=== PATIENT | male | born 1985 | race Caucasian/White ===

== ENCOUNTER 2018-01-27 16:52 | Emergency (ER) | payer OTHER ==
[2018-01-27 17:42] LABS: Absolute Lymphocytes (CBC) 3.4 K/uL (0.7-4.9); Absolute Monocytes 0.6 K/uL (0.1-1.3); Absolute Neutrophil 3.2 K/uL (1.8-8.0); Basophils % 0.9 % (0-1.3); Eosinophils % 1.9 % (0-4.4); Hematocrit 42.4 % (39.6-49.0); Lymphocytes % 46.5 % (15.3-44.8); MCH 29.6 pg (27.0-35.0); MCV 84.4 fL (80-100); MPV 8.8 fL (7.6-11.3); Monocytes % 7.7 % (3.3-12.3); RBC Red Blood Cell Count 5.02 M/uL (4.33-5.43)
[2018-01-27 18:07] LABS: Glucose Level 332 mg/dL (65-120)
[2018-01-27 18:09] LABS: Bicarbonate 21 mEq/L (21-31)
[2018-01-27 18:10] LABS: Potassium 4.5 mEq/L (3.6-5.0); Sodium Level 139 mEq/L (135-145)
[2018-01-27 18:13] LABS: Albumin 4.2 g/dL (3.2-5.5); Alkaline Phosphatase 89 IU/L (42-121); Bilirubin Direct 0.3 mg/dL (0-0.2); Bilirubin Total 1.2 mg/dL (0.3-1.2); Magnesium 1.6 mg/dL (1.8-2.5); Protein, Total 7.3 g/dL (6.0-8.3)
[2018-01-27 18:17] LABS: ALT/SGPT 40 IU/L (10-60); AST/SGOT 58 IU/L (10-42); Creatine Phosphokinase 320 IU/L (22-269)
[2018-01-27 18:18] LABS: CKMB Creatine Kinase MB 1.8 ng/ml (0.3-4.0)
[2018-01-27 18:33] LABS: BUN Blood Urea Nitrogen 10 mg/dL (6-20); Glomerular Filtration Rate > 90 mL/min (=/>90)
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
--- NOTE | 2018-01-27 19:27 | RAD REPORT ---
EXAM DESCRIPTION: CT - Neck Angio - 01/27/2018 7:07 pm CLINICAL HISTORY: Neck pain. COMPARISON: 01/27/2018 FINDINGS: CT angiography of the neck vessels was performed with volume rendering. A left aortic arch is noted with normal great vessel origin pattern. No evidence of carotid or verteb ral artery dissection or stenosis. Codominant vertebral arteries are present. No flow abnormality is detected. IMPRESSION: No significant flow abnormality of the neck vessels.
[2018-01-27] MEDS ORDERED: INSULIN -REGULAR HUMAN 50 UNIT/0.5 ML ML ONE (19:45)
[2018-01-27] MEDS ORDERED: NA CHLORIDE 0.9% 1,000 ML ONE (19:45)
[2018-01-27] MEDS ORDERED: Magnesium Sulfate 2gm IVPB 2 G/50 ML BAG IV ONE (19:45)
--- NOTE | 2018-01-27 20:04 | EDPHYS ---
Physician Documentation [facility] Name: Marc Giron Age: 32 yrs Sex: Male : 1985 Arrival Date: 01/27/2018 Time: 16:56 Bed 26 Private MD: ED Physician SarikaCheleMack HPI: 01/27 17:22 This 32 yrs old Male presents to ER via Ambulatory with complaints of Neck cp Problem, Hand Pain. 17:22 The patient or guardian complains of pain, that is chronic, weakness. Associated signs cp and symptoms: Pertinent positives: Paresthesias weakness, of the right hand and left hand, Pertinent negatives: fever. 17:22 Onset: The symptoms/episode began/occurred last year. cp 17:22 Context: The neck injury/problem resulted from from unknown cause. Patient reports he cp has been seen at [facility] recently and treated for carpal tunnel with steroids and muscle relaxers. Patient was adjusted by chiropractor last week and symptoms are worse since adjustment. Historical: - Allergies: 16:59 No Known Allergies; la1 - Home Meds: 17:53 Dexilant 60 mg Oral CpDB 1 cap once daily [Active]; gemfibrozil 600 mg Oral tab 1 tab 2 tl3 times per day [Active]; lisinopril 40 mg oral tab 1 tab once daily [Active]; metformin 1,000 mg Oral tab 1 tab 2 times per day [Active]; metoprolol tartrate 50 mg Oral tab daily [Active]; venlafaxine 75 mg Oral cp24 [Active]; 17:54 Novolog Sub-Q [Active]; Lantus Sub-Q [Active]; tl3 - PMHx: 16:59 Depression; Diabetes - NIDDM; Hyperlipidemia; Hypertension; insomnia; la1 - PSHx: 17:53 R radial head; Cholecystectomy; inguenal hernia repair; tl3 - Immunization history:: Adult Immunizations up to date. - Social history:: Smoking status: Patient/guardian denies using tobacco. ROS: 17:30 Constitutional: Negative for body aches, chills, fever, poor PO intake, weight loss. cp 17:30 Eyes: Negative for injury, pain, redness, and discharge. cp 17:30 ENT: Negative for drainage from ear(s), ear pain, sore throat, difficulty swallowing, difficulty handling secretions. 17:30 Neck: Positive for pain with movement, tenderness, Negative for injury or acute deformity. 17:30 Cardiovascular: Negative for chest pain, edema, palpitations. 17:30 Respiratory: Negative for cough, shortness of breath, wheezing. 17:30 Abdomen/GI: Negative for abdominal pain, nausea, vomiting, and diarrhea. 17:30 Back: Negative for injury or acute deformity, decreased range of motion. 17:30 MS/extremity: Positive for paresthesias, of the right hand and left hand. 17:30 Skin: Negative for cellulitis, rash. 17:30 Neuro: Positive for weakness, of the right hand and left hand, Negative for altered mental status, headache. 17:30 All other systems are negative. Exam: 17:40 Constitutional: The patient appears in no acute distress, alert, awake, cp non-diaphoretic, non-toxic, well developed, well nourished. 17:40 Head/Face: Normocephalic, atraumatic. cp 17:40 Eyes: Pupils equal round and reactive to light, extra-ocular motions intact. Lids and cp lashes normal. Conjunctiva and sclera are non-icteric and not injected. Cornea within normal limits. Periorbital areas with no swelling, redness, or edema. ENT: Nares patent. No nasal discharge, no septal abnormalities noted. Tympanic membranes are normal and external auditory canals are clear. Oropharynx with no redness, swelling, or masses, exudates, or evidence of obstruction, uvula midline. Mucous membranes moist. 17:40 Neck: External neck: swelling, is not appreciated, tenderness, that is mild, of the left mid cervical area, right mid cervical area, left trapezius, lower cervical area and right trapezius, ROM/movement: pain, that is mild, limited range of motion, is not appreciated, nuchal rigidity, is not appreciated. 17:40 Chest/axilla: Inspection: normal, Palpation: is normal, no crepitus, no tenderness. 17:40 Cardiovascular: Rate: normal, Rhythm: regular, Pulses: Pulses are 2+ in right radial artery and left radial artery. Heart sounds: murmur, not appreciated, rub, not appreciated, gallop, not appreciated. 17:40 Respiratory: the patient does not display signs of respiratory distress, Respirations: normal, no use of accessory muscles, no retractions, no splinting, no tachypnea, labored breathing, is not present, Breath sounds: are clear throughout, no decreased breath sounds, no stridor, no wheezing. 17:40 Abdomen/GI: Inspection: abdomen appears normal, Bowel sounds: active, all quadrants, Palpation: abdomen is soft and non-tender, in all quadrants, rebound tenderness, is not appreciated, voluntary guarding, is not appreciated, involuntary guarding, is not appreciated. 17:40 Back: ROM is normal. 17:40 Musculoskeletal/extremity: Exam is negative for decreased range of motion, deformity, injury. 17:40 Skin: cellulitis, is not appreciated, no rash present. 17:40 Neuro: Orientation: to person, place \T\ time. Mentation: is normal, Cerebellar function: is grossly normal, Motor: moves all fours, equal and symmetric bilateral upper extremities, Sensation: tingling, that is mild, of the right hand and left hand, Deep tendon reflexes are 2+ (normal) in the right tricep, right bicep, right brachioradialis, left bicep, left tricep and left brachioradialis. 17:53 ECG was reviewed by the Attending Physician. cp Vital Signs: 16:59 BP 125 / 78; Pulse 93; Resp 16; Temp 97.7; Pulse Ox 100% on R/A; Weight 108.86 kg; la1 Height 5 ft. 10 in. (177.80 cm); 17:55 BP 132 / 78; Pulse 84; Resp 18; Pulse Ox 100% ; tl3 18:52 BP 109 / 68; Pulse 82; Resp 18; Pulse Ox 100% on R/A; tl3 19:39 BP 99 / 61; Pulse 82; Resp 16; Pulse Ox 96% on R/A; tl3 20:06 BP 119 / 77; Pulse 85; Resp 18; Pulse Ox 98% ; tl3 16:59 Body Mass Index 34.44 (108.86 kg, 177.80 cm) la1 MDM: 17:02 Patient medically screened. cp 18:00 Differential diagnosis: C-Spine Fracture Cervical Disc Herniation Cervical Raiculopathy cp Cervical Spondylosis cervical strain, Spinal Cord Compression Spondylosis subluxation, diabetic neuropathy, carpal tunnel. 20:01 Data reviewed: vital signs, nurses notes, lab test result(s), EKG, radiologic studies, cp CT scan. Counseling: I had a detailed discussion with the patient and/or guardian regarding: the historical points, exam findings, and any diagnostic results supporting the discharge/admit diagnosis, lab results, radiology results, the need for outpatient follow up, a neurologist, to return to the emergency department if symptoms worsen or persist or if there are any questions or concerns that arise at home. 20:01 Response to treatment: Improved. Patient observed sleeping in exam room. Will discharge cp to home for continued monitoring. 01/27 17:17 Order name: Ckmb; Complete Time: 18:42 cp 01/27 17:17 Order name: Basic Metabolic Panel; Complete Time: 18:42 cp 01/27 18:42 Interpretation: Normal except: GLUC 332. cp 01/27 17:17 Order name: CBC with Diff; Complete Time: 18:42 cp 01/27 19:37 Interpretation: Normal except: LYM% 46.5. cp 01/27 17:17 Order name: CPK; Complete Time: 18:42 cp 01/27 17:17 Order name: LFT's; Complete Time: 18:42 cp 01/27 19:38 Interpretation: Normal except: BILID 0.3; SGOT 58. cp 01/27 17:17 Order name: Magnesium; Complete Time: 18:42 cp 01/27 20:00 Interpretation: Abnormal: MG 1.6. cp 01/27 17:17 Order name: IV; Complete Time: 17:33 cp 01/27 17:17 Order name: EKG; Complete Time: 17:17 cp 01/27 17:17 Order name: Troponin (emerg Dept Use Only); Complete Time: 18:42 cp 01/27 17:17 Order name: CT Head C Spine; Complete Time: 19:35 cp 01/27 17:17 Order name: CT Neck Angio; Complete Time: 19:35 cp 01/27 17:17 Order name: Cardiac monitoring; Complete Time: 17:28 cp 01/27 17:17 Order name: EKG - Nurse/Tech; Complete Time: 18:11 cp 01/27 17:17 Order name: Labs collected and sent; Complete Time: 17:28 cp 01/27 17:17 Order name: O2 Per Protocol; Complete Time: 17:28 cp 01/27 17:17 Order name: O2 Sat Monitoring; Complete Time: 17:28 cp 01/27 19:53 Order name: Carmen Blood Glucose; Complete Time: 20:09 cp EC:53 Rate is 81 beats/min. Rhythm is regular. PA interval is normal. QRS interval is normal. cp QT interval is normal. No ST changes noted. Interpreted by me. Reviewed by me. Administered Medications: 19:34 Drug: Magnesium Sulfate 2 grams Route: IVPB; Infused Over: 2 hrs; Site: right tl3 antecubital; Delivery: Primary tubing; 20:49 Follow up: IV Status: Completed infusion; IV Intake: 100ml tl3 19:35 Drug: NS 0.9% 1000 ml Route: IV; Rate: 1 bolus; Site: right antecubital; Delivery: tl3 Primary tubing; 20:49 Follow up: IV Status: Completed infusion; IV Intake: 1000ml tl3 19:36 Drug: NovoLIN R 10 units {Co-Signature: anabelle (Becca Kirk RN).} Route: Sub-Q; Site: tl3 abdomen; 20:50 Follow up: Response: No adverse reaction; Blood sugar is lowered tl3 Point of Care Testing: Blood Glucose: 20:14 Blood Glucose: 264 mg/dL; tl3 Ranges: Critical Glucose Levels:Adult <50 mg/dl or >400 mg/dl <40 mg/dl or >180 mg/dl Disposition: 01/27/18 20:03 Discharged to Home. Impression: Paresthesia of skin - Bilateral Hands, Weakness - Bilateral Hands, Neck Pain. - Condition is Stable. - Discharge Instructions: Musculoskeletal Pain, Paresthesia, Weakness. - Prescriptions for Skelaxin 800 mg Oral Tablet - take 1 tablet by ORAL route every 8 hours As needed no driving while taking medication; 30 tablet. Tramadol 50 mg Oral Tablet - take 1 tablet by ORAL route every 8 hours as needed. no driving while taking medication; 15 tablet. - Medication Reconciliation Form, Thank You Letter, Antibiotic Education, Prescription Opioid Use form. - Follow up: Jagdeep Byrne MD; When: 2 - 3 days; Reason: Recheck today's complaints. - Problem is an ongoing problem. - Symptoms are unchanged. Addendum: 01/29/2018 07:27 Co-signature as Attending Physician, Mack Baum MD. g s Signatures: [facility] Conor Mendez RN RN la1 Rohan Caldwell PA PA cp Starr, Gregory, MD MD gs Keira Silva RN RN tl3 Becca Kirk RN aa1 Corrections: (The following items were deleted from the chart) 01/27 17:55 17:53 Home Meds: Lantus 100 unit/mL Sub-Q soln twice a day; tl3 tl3 17:55 17:53 Home Meds: Novolog 100 unit/mL Sub-Q soln before meals; tl3 tl3
--- NOTE | 2018-01-27 20:04 | ER ---
Nurse's Notes [facility] Name: Marc Giron Age: 32 yrs Sex: Male : 1985 Arrival Date: 01/27/2018 Time: 16:56 Bed 26 Private MD: Diagnosis: Paresthesia of skin-Bilateral Hands;Weakness-Bilateral Hands;Neck Pain Presentation: 01/27 16:59 Presenting complaint: Patient states: I have been having pain in my neck as well as la1 numbness and pain in daysi hands. Transition of care: patient was not received from another setting of care. Acute neurological deficit: none identified. Onset of symptoms was January 27, 2018. Care prior to arrival: None. 16:59 Method Of Arrival: Ambulatory la1 16:59 Acuity: MARGARITA 3 la1 Historical: - Allergies: 16:59 No Known Allergies; la1 - Home Meds: 17:53 Dexilant 60 mg Oral CpDB 1 cap once daily [Active]; gemfibrozil 600 mg Oral tab 1 tab 2 tl3 times per day [Active]; lisinopril 40 mg oral tab 1 tab once daily [Active]; metformin 1,000 mg Oral tab 1 tab 2 times per day [Active]; metoprolol tartrate 50 mg Oral tab daily [Active]; venlafaxine 75 mg Oral cp24 [Active]; 17:54 Novolog Sub-Q [Active]; Lantus Sub-Q [Active]; tl3 - PMHx: 16:59 Depression; Diabetes - NIDDM; Hyperlipidemia; Hypertension; insomnia; la1 - PSHx: 17:53 R radial head; Cholecystectomy; inguenal hernia repair; tl3 - Immunization history:: Adult Immunizations up to date. - Social history:: Smoking status: Patient/guardian denies using tobacco. Screenin:09 Abuse screen: Denies threats or abuse. Nutritional screening: No deficits noted. tl3 Tuberculosis screening: No symptoms or risk factors identified. Fall Risk None identified. Assessment: 17:09 General: Appears uncomfortable, well groomed, well developed, well nourished, Behavior tl3 is calm, cooperative, appropriate for age. Pain: Complains of pain in neck and left shoulder, bilateral hands Pain currently is 7 out of 10 on a pain scale. Neuro: Level of Consciousness is awake, alert, obeys commands, Oriented to person, place, time, situation, Appropriate for age. Cardiovascular: Heart tones S1 S2 present Capillary refill < 3 seconds in bilateral fingers. Respiratory: Airway is patent Trachea midline Respiratory effort is even, unlabored. GI: No signs and/or symptoms were reported involving the gastrointestinal system. : No signs and/or symptoms were reported regarding the genitourinary system. EENT: No signs and/or symptoms were reported regarding the EENT system. Derm: No signs and/or symptoms reported regarding the dermatologic system. Musculoskeletal: No signs and/or symptoms reported regarding the musculoskeletal system. 17:11 Reassessment: pt states that his fingers started feeling numb off and on since tl3 September. Started after he roofed his house, now 4 fingers are numb and hands hurt, neck and shoulder pain as well off/on since September, but has gotten worse lately, saw chiropractor on Monday, neck pain was initially better after adjustment but now is worse.PT has tried Flexeril, a 5 day course of steroids and tramadol without relief. 17:55 Reassessment: No changes from previously documented assessment. Patient and/or family tl3 updated on plan of care and expected duration. Pain level reassessed. Patient is alert, oriented x 3, equal unlabored respirations, skin warm/dry/pink. EKG complete. 18:52 Reassessment: No changes from previously documented assessment. Patient and/or family tl3 updated on plan of care and expected duration. Pain level reassessed. Patient is alert, oriented x 3, equal unlabored respirations, skin warm/dry/pink. pt reports shoot pain from right wrist up into upper arm. 19:39 Reassessment: No changes from previously documented assessment. Patient and/or family tl3 updated on plan of care and expected duration. Pain level reassessed. Patient is alert, oriented x 3, equal unlabored respirations, skin warm/dry/pink. 20:06 Reassessment: Patient appears in no apparent distress at this time. No changes from tl3 previously documented assessment. Patient and/or family updated on plan of care and expected duration. Pain level reassessed. Patient is alert, oriented x 3, equal unlabored respirations, skin warm/dry/pink. pt is up for discharge, awaiting drug infusion to complete. Vital Signs: 16:59 BP 125 / 78; Pulse 93; Resp 16; Temp 97.7; Pulse Ox 100% on R/A; Weight 108.86 kg; la1 Height 5 ft. 10 in. (177.80 cm); 17:55 BP 132 / 78; Pulse 84; Resp 18; Pulse Ox 100% ; tl3 18:52 BP 109 / 68; Pulse 82; Resp 18; Pulse Ox 100% on R/A; tl3 19:39 BP 99 / 61; Pulse 82; Resp 16; Pulse Ox 96% on R/A; tl3 20:06 BP 119 / 77; Pulse 85; Resp 18; Pulse Ox 98% ; tl3 16:59 Body Mass Index 34.44 (108.86 kg, 177.80 cm) la1 ED Course: 16:56 Patient arrived in ED. mr 16:59 Triage completed. la1 17:00 Arm band placed on right wrist. la1 17:01 Rohan Caldwell PA is PHCP. cp 17:01 Mack Baum MD is Attending Physician. cp 17:02 Keira Silva, BRIDGET is Primary Nurse. tl3 17:09 Patient has correct armband on for positive identification. Bed in low position. Call tl3 light in reach. Side rails up X 1. Adult w/ patient. 17:09 No provider procedures requiring assistance completed. tl3 17:11 Inserted saline lock: 22 gauge in right antecubital area, using aseptic technique. tl3 17:23 Radiology exam delayed due to lab results not completed at this time. (BUN/Creatinine). bq 18:[address] via stretcher. tl3 19:06 CT completed. Patient tolerated procedure well. Patient moved back from CT. bq 19:07 CT Neck Angio In Process Unspecified. EDMS 19:08 CT Head C Spine In Process Unspecified. EDMS 20:02 Jagdeep Byrne MD is Referral Physician. cp 20:48 IV discontinued, intact, bleeding controlled, No redness/swelling at site. Pressure tl3 dressing applied. Administered Medications: 19:34 Drug: Magnesium Sulfate 2 grams Route: IVPB; Infused Over: 2 hrs; Site: right tl3 antecubital; Delivery: Primary tubing; 20:49 Follow up: IV Status: Completed infusion; IV Intake: 100ml tl3 19:35 Drug: NS 0.9% 1000 ml Route: IV; Rate: 1 bolus; Site: right antecubital; Delivery: tl3 Primary tubing; 20:49 Follow up: IV Status: Completed infusion; IV Intake: 1000ml tl3 19:36 Drug: NovoLIN R 10 units {Co-Signature: aa1 (Becca Kirk RN).} Route: Sub-Q; Site: tl3 abdomen; 20:50 Follow up: Response: No adverse reaction; Blood sugar is lowered tl3 Point of Care Testing: Blood Glucose: 20:14 Blood Glucose: 264 mg/dL; tl3 Ranges: Intake: 20:49 IV: 100ml; Total: 100ml. tl3 20:49 IV: 1000ml; Total: 1100ml. tl3 Outcome: 20:03 Discharge ordered by MD. cp 20:48 Discharged to home ambulatory. tl3 20:48 Condition: stable 20:48 Discharge instructions given to patient, Instructed on discharge instructions, follow up and referral plans. medication usage, Demonstrated understanding of instructions, follow-up care, medications, Prescriptions given X 2. 20:50 Patient left the ED. tl3 Signatures: Dispatcher [employer] EDAR Basilia Shannon mr SkyerichLilliam Lee, RN RN la1 Rohan Caldwell PA PA cp Lowrey, Tammy, RN RN tl3 Becca Kirk RN aa1 Corrections: (The following items were deleted from the chart) 17:55 17:53 Home Meds: Lantus 100 unit/mL Sub-Q soln twice a day; tl3 tl3 17:55 17:53 Home Meds: Novolog 100 unit/mL Sub-Q soln before meals; tl3 tl3 19:35 19:34 Magnesium Sulfate 2 grams IVPB in right forearm over 2 hrs via Primary tubing tl3 tl3
[2018-01-27 20:54] VITALS: TEMP 97.7
[2018-01-27 20:59] VITALS: BP 119/77; O2SAT 98
--- NOTE | 2018-01-28 12:45 | EKG ---
Test Date: 2018-01-27 Test Time: 17:47:53 Can Vacuum Tester: EMT MEASUREMENT RESULTS: Intervals: Rate: 81 NE: 132 QRSD: 84 QT: 380 QTc: 441 [place]: P: 44 NE: 132 QRS: 80 T: 34 INTERPRETIVE STATEMENTS: Normal sinus rhythm Normal ECG Compared to ECG 06/09/2017 18:01:35 No significant changes Electronically Signed On 01-28-18 12:44:18 CDT by Alvaro Crane
== END 2018-01-27 20:50 | disposition home or self-care (01) ==
LOC: ER 16:52
DX: M54.2 Cervicalgia (principal); M62.81 Muscle weakness (generalized); I10 Essential (primary) hypertension; E11.9 Type 2 diabetes mellitus without complications; E78.5 Hyperlipidemia, unspecified; F32.9 Major depressive disorder, single episode, unspecified; Z79.4 Long term (current) use of insulin
CPT/HCPCS: 36415; 70450; 70498; 72125; 80048; 80076; 82550; 82553; 82962; 83735; 84484; 85025; 93005; 96361; 96365; 96372; 99284; J3475; J7030; Q9967

== ENCOUNTER 2018-02-14 12:14 | Emergency (ER) | payer OTHER ==
[2018-02-14] MEDS ORDERED: FENTANYL CITR 100 MCG/2 ML ONE (12:31)
[2018-02-14] MEDS ORDERED: ONDANSETRON 4 MG/2 ML VIAL ONE (12:31)
[2018-02-14] MEDS ORDERED: NA CHLORIDE 0.9% 1,000 ML ONE (12:31)
[2018-02-14 13:00] LABS: Absolute Lymphocytes (CBC) 2.2 K/uL (0.7-4.9); Absolute Monocytes 0.5 K/uL (0.1-1.3); Absolute Neutrophil 3.6 K/uL (1.8-8.0); Basophils % 0.4 % (0-1.3); Eosinophils % 1.2 % (0-4.4); Hematocrit 43.3 % (39.6-49.0); Lymphocytes % 34.7 % (15.3-44.8); MCH 28.2 pg (27.0-35.0); MCV 84.2 fL (80-100); MPV 8.6 fL (7.6-11.3); Monocytes % 8.3 % (3.3-12.3); RBC Red Blood Cell Count 5.14 M/uL (4.33-5.43)
[2018-02-14 13:05] LABS: Bicarbonate 26 mEq/L (21-31); Glomerular Filtration Rate > 60 mL/min (>60); Glucose Level 381 mg/dL (65-120); Sodium Level 131 mEq/L (135-145)
[2018-02-14 13:06] LABS: BUN Blood Urea Nitrogen 9 mg/dL (6-20); Glomerular Filtration Rate > 90 mL/min (=/>90)
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
[2018-02-14] MEDS ORDERED: HYDROCODONE/APAP 10/325 TAB ONE (13:35)
[2018-02-14] MEDS ORDERED: LORazepam 2 MG/ML VIAL ONE (13:40)
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
[2018-02-14 15:53] VITALS: BP 138/96; TEMP 97.9; O2SAT 100
== END 2018-02-14 15:44 | disposition home or self-care (01) ==
LOC: ER 12:14
DX: M62.830 Muscle spasm of back (principal); V49.49XA Driver injured in collision with other motor vehicles in traffic accident, initial encounter; I10 Essential (primary) hypertension; E11.9 Type 2 diabetes mellitus without complications; E78.5 Hyperlipidemia, unspecified; F32.9 Major depressive disorder, single episode, unspecified; Z79.4 Long term (current) use of insulin
CPT/HCPCS: 36415; 70450; 71260; 72125; 74177; 80048; 85025; 86850; 86900; 86901; 96374; 96375; 99285; J2405; J3010; J7030; Q9967

== ENCOUNTER 2018-04-11 16:13 | Observation (INO) | payer OTHER ==
[2018-04-11] MEDS ORDERED: NA CHLORIDE 0.9% 1,000 ML ONE ×2 (16:46→19:46)
--- NOTE | 2018-04-11 17:08 | RAD REPORT ---
EXAM DESCRIPTION: RAD - Chest Single View - 04/11/2018 4:55 pm CLINICAL HISTORY: Chest pain. COMPARISON: 06/09/2017 FINDINGS: Portable technique limits examination quality. The lungs are grossly clear. The heart is normal in size. No displaced fractures. IMPRESSION: No acute intrathoracic process suspected.
[2018-04-11 17:12] LABS: Absolute Lymphocytes (CBC) 2.4 K/uL (0.7-4.9); Absolute Monocytes 0.8 K/uL (0.1-1.3); Basophils % 0.5 % (0-1.3); Eosinophils % 1.1 % (0-4.4); Hematocrit 44.8 % (39.6-49.0); Lymphocytes % 32.6 % (15.3-44.8); MCH 27.7 pg (27.0-35.0); MCV 81.9 fL (80-100); MPV 8.4 fL (7.6-11.3); Monocytes % 10.9 % (3.3-12.3); RBC Red Blood Cell Count 5.47 M/uL (4.33-5.43)
[2018-04-11 17:18] LABS: Protime INR 0.96
[2018-04-11 17:30] LABS: Potassium 3.6 mEq/L (3.6-5.0)
[2018-04-11 17:36] LABS: Albumin 3.7 g/dL (3.2-5.5); Bilirubin Direct 0.1 mg/dL (0-0.2); Bilirubin Total 0.5 mg/dL (0.3-1.2)
[2018-04-11 17:37] LABS: CKMB Creatine Kinase MB 0.5 ng/ml (0.3-4.0)
[2018-04-11 17:39] LABS: Magnesium 1.5 mg/dL (1.8-2.5)
[2018-04-11 18:12] LABS: Barbiturates NEGATIVE (NEGATIVE); Benzodiazepines NEGATIVE (NEGATIVE); Cocaine NEGATIVE (NEGATIVE); METHAMPHETAM NEGATIVE (NEGATIVE); Opiates NEGATIVE (NEGATIVE); Phencyclidine NEGATIVE (NEGATIVE); THC Cannibis NEGATIVE (NEGATIVE)
--- NOTE | 2018-04-11 19:35 | ER ---
Nurse's Notes [facility] Name: Marc Giron Age: 32 yrs Sex: Male : 1985 Arrival Date: 04/11/2018 Time: 16:15 Bed 6 Private MD: Diagnosis: Chest pain, unspecified;Essential (primary) hypertension;Type 2 diabetes mellitus;Obesity, unspecified Presentation: 04/11 16:16 Presenting complaint: EMS states: called from [facility] for pt complaining of chest hj tightness, crampy feeling on the chest about 7/10 that moves to the L shoulder, L chest area, fast heart rate 120's to 130's as stated from i watch, BGL- 316, NS of 400 cc dropped BGL to 260; BP- 124/84;. Transition of care: patient was received from another setting of care (ambulatory primary care physician practice), [facility]. Onset of symptoms was April 11, 2018. Risk Assessment: Do you want to hurt yourself or someone else? Patient reports no desire to harm self or others. Initial Sepsis Screen: Does the patient meet any 2 criteria? No. Patient's initial sepsis screen is negative. Does the patient have a suspected source of infection? No. Patient's initial sepsis screen is negative. Care prior to arrival: None. 16:16 Method Of Arrival: EMS: [facility] 16:16 Acuity: MARGARITA 3 hj Triage Assessment: 16:20 General: Appears in no apparent distress. uncomfortable, obese, Behavior is calm, hj cooperative, appropriate for age. Pain: Complains of pain in chest Pain radiates to left nipple and left arm Pain currently is 7 out of 10 on a pain scale. Quality of pain is described as crampy, Pain began 2 hours ago. EENT: No signs and/or symptoms were reported regarding the EENT system. Neuro: Level of Consciousness is awake, alert, obeys commands, Oriented to person, place, time, situation, Appropriate for age. Cardiovascular: Reports chest pain, lightheadedness, Heart tones S1 S2 present Capillary refill < 3 seconds Patient's skin is warm and dry. Respiratory: Airway is patent Respiratory effort is even, unlabored, Respiratory pattern is regular, symmetrical. GI: No signs and/or symptoms were reported involving the gastrointestinal system. : No signs and/or symptoms were reported regarding the genitourinary system. Derm: No signs and/or symptoms reported regarding the dermatologic system. Musculoskeletal: No signs and/or symptoms reported regarding the musculoskeletal system. Historical: - Allergies: 16:20 No Known Allergies; hj - Home Meds: 16:20 Dexilant 60 mg Oral CpDB 1 cap once daily [Active]; gemfibrozil 600 mg Oral tab 1 tab 2 hj times per day [Active]; Lantus Sub-Q [Active]; lisinopril 40 mg Oral tab 1 tab once daily [Active]; metformin 1,000 mg Oral tab 1 tab 2 times per day [Active]; metoprolol tartrate 50 mg Oral tab daily [Active]; Novolog Sub-Q [Active]; venlafaxine 75 mg Oral cp24 [Active]; - PMHx: 16:20 Depression; Diabetes - NIDDM; Hyperlipidemia; Hypertension; insomnia; hj - PSHx: 16:20 Cholecystectomy; hj - Immunization history:: Adult Immunizations unknown. - Social history:: Smoking status: Patient uses tobacco products, Patient uses alcohol. - Ebola Screening: : Patient negative for fever greater than or equal to 101.5 degrees Fahrenheit, and additional compatible Ebola Virus Disease symptoms Patient denies exposure to infectious person Patient denies travel to an Ebola-affected area in the 21 days before illness onset. Screenin:22 Abuse screen: Denies threats or abuse. Denies injuries from another. Nutritional hj screening: No deficits noted. Tuberculosis screening: No symptoms or risk factors identified. Fall Risk None identified. Assessment: 16:23 Reassessment: see triage assessment;. hj 17:38 Reassessment: Patient and/or family updated on plan of care and expected duration. Pain hj level reassessed. Patient is alert, oriented x 3, equal unlabored respirations, skin warm/dry/pink. awaiting results and POC;. 18:45 Reassessment: Patient and/or family updated on plan of care and expected duration. Pain hj level reassessed. Patient is alert, oriented x 3, equal unlabored respirations, skin warm/dry/pink. awaiting POC;. 19:23 General: Appears in no apparent distress. uncomfortable, Behavior is calm, cooperative, ao appropriate for age. Pain: Complains of pain in Reports chest pain that has subside. Patient denies pain at this moment and only C/O weakness Pain radiates to left arm Pain currently is 0 out of 10 on a pain scale. Quality of pain is described as pressure. Pain: Pain began 2-3 days ago. Is episodic, Alleviated by. Neuro: Level of Consciousness is awake, alert, obeys commands, Oriented to person, place, time, situation, Appropriate for age Moves all extremities. Weakness Speech is normal, Facial symmetry appears normal. Cardiovascular: Capillary refill < 3 seconds Patient's skin is warm and dry. Respiratory: Airway is patent Respiratory effort is even, unlabored, Respiratory pattern is regular, symmetrical. GI: Abdomen is obese. : No signs and/or symptoms were reported regarding the genitourinary system. EENT: No signs and/or symptoms were reported regarding the EENT system. Derm: Skin is pink, warm \T\ dry. normal, Skin temperature is warm. 20:45 Reassessment: Patient appears in no apparent distress at this time. Patient and/or ao family updated on plan of care and expected duration. Pain level reassessed. Patient is alert, oriented x 3, equal unlabored respirations, skin warm/dry/pink. Waiting on Room Assignment. DR Thompson has already talk to patient. 21:10 Reassessment: Called report to 4 [place]. Primary nurse will call back to get report. ao 21:31 Reassessment: Phone report given to BRIDGET Cui. Patient to be taking to his room. ao Vital Signs: 16:21 BP 128 / 89; Pulse 113; Resp 18; Temp 97.9(TE); Pulse Ox 98% on R/A; Weight 119.75 kg; hj Height 5 ft. 10 in. (177.80 cm); Pain 7/10; 17:39 BP 124 / 75; Pulse 108; Resp 18; Pulse Ox 100% on R/A; hj 18:45 BP 120 / 75; Pulse 95; Resp 18; Pulse Ox 100% on R/A; hj 19:18 BP 120 / 75; Pulse 106; Resp 19; Pulse Ox 97% on R/A; Pain 0/10; ao 20:50 BP 121 / 74; Pulse 98; Resp 16; Pulse Ox 100% on R/A; Pain 0/10; ao 16:21 Body Mass Index 37.88 (119.75 kg, 177.80 cm) ED Course: 16:15 Patient arrived in ED. hj 16:17 Michael Saxena MD is Attending Physician. kdr 16:18 Triage completed. hj 16:22 Arm band placed on right wrist. hj 16:22 Patient has correct armband on for positive identification. Placed in gown. Bed in low hj position. Call light in reach. Side rails up X 1. supervisor cleaning and annealing on. Pulse ox on. NIBP on. 16:23 Patient maintains SpO2 saturation greater than 95% on room air. hj 16:29 EKG done, by chief medical technologist. reviewed by Michael Saxena MD. sm3 16:33 Yuri Dietz, BRIDGET is Primary Nurse. hj 16:37 Maintain EMS IV. Dressing intact. Good blood return noted. Site clean \T\ dry. Gauge \T\ hj site: 20g R AC;'. 16:53 X-ray completed. Portable x-ray completed in exam room. Patient tolerated procedure jb2 well. 16:54 XRAY Chest (1 view) In Process Unspecified. EDMS 17:59 Urine collected: urinal, clear. dh3 19:11 Attending Physician role handed off by Michael Saxena MD marily 19:11 Rohan Barber MD is Attending Physician. marily 19:34 Federico Ram MD is Hospitalizing Provider. marily 19:[address] via stretcher. vr 20:00 CT Chest For PE Angio In Process Unspecified. EDMS 20:01 CT completed. Patient tolerated procedure well. Patient moved back from CT. vr 21:30 No provider procedures requiring assistance completed. Patient admitted, IV remains in ao place. Administered Medications: 16:38 Drug: NS 0.9% 1000 ml Route: IV; Rate: 1 bolus; Site: right antecubital; hj 21:33 Follow up: IV Status: Completed infusion; IV Intake: 1000ml ao 19:53 Drug: NS 0.9% 1000 ml Route: IV; Rate: 1 bolus; Site: right femoral; ao 21:33 Follow up: IV Status: Completed infusion ao 19:53 Drug: Aspirin Chewable Tablet 324 mg Route: PO; ao 21:32 Follow up: Response: No adverse reaction ao 19:53 Drug: Lovenox 100 mg Route: Sub-Q; Site: abdomen; ao 21:32 Follow up: Response: No adverse reaction ao 19:54 Drug: Magnesium Sulfate 2 grams Route: IVPB; Infused Over: 2 hrs; Site: right forearm; ao 21:33 Follow up: IV Status: Completed infusion; IV Intake: 100ml ao Point of Care Testing: Blood Glucose: 16:33 Blood Glucose: 195 mg/dL; rekha Ranges: Intake: 21:33 IV: 100ml; Total: 100ml. ao 21:33 IV: 1000ml; Total: 1100ml. ao Outcome: 19:35 Decision to Hospitalize by Provider. marily 21:31 Admitted to Tele accompanied by tech, room 429, with chart, Report called to BRIDGET Cui ao 21:31 Condition: stable 22:10 Patient left the ED. ao Signatures: Dispatcher [employer] EDRohan Pete MD MD cha Rittger, Kevin, MD MD kdr Buechter, Jesse jb2 Davis, Victoria vr Joaquin, Henry, RN RN hj Ortiz, Alex, RN RN ao Herrera, Deanna 3 Ginger Bernal 3
--- NOTE | 2018-04-11 19:36 | EDPHYS ---
Physician Documentation [facility] Name: Marc Giron Age: 32 yrs Sex: Male : 1985 Arrival Date: 04/11/2018 Time: 16:15 Bed 6 Private MD: ED Physician Rohan Barber HPI: 04/11 16:50 This 32 yrs old Male presents to ER via EMS with complaints of Chest kdr Tightness, Dizziness. 16:50 The patient or guardian reports chest pain that is located primarily in the substernal kdr area, anterior chest wall, bilaterally. The pain does not radiate. Associated signs and symptoms: Pertinent positives: diaphoresis, nausea, Pertinent negatives: dizziness, nausea, recent travel, shortness of breath, syncope, vomiting. The chest pain is described as aching, a heaviness, a pressure. Duration: The patient or guardian reports a single episode, that is still ongoing, and unchanged. Modifying factors: The symptoms are alleviated by nothing. the symptoms are aggravated by exertion, movement, walking. Severity of pain: At its worst the pain was mild in the emergency department the pain is unchanged. The patient has not experienced similar symptoms in the past. The patient has not recently seen a physician. Historical: - Allergies: 16:20 No Known Allergies; hj - Home Meds: 16:20 Dexilant 60 mg Oral CpDB 1 cap once daily [Active]; gemfibrozil 600 mg Oral tab 1 tab 2 hj times per day [Active]; Lantus Sub-Q [Active]; lisinopril 40 mg Oral tab 1 tab once daily [Active]; metformin 1,000 mg Oral tab 1 tab 2 times per day [Active]; metoprolol tartrate 50 mg Oral tab daily [Active]; Novolog Sub-Q [Active]; venlafaxine 75 mg Oral cp24 [Active]; - PMHx: 16:20 Depression; Diabetes - NIDDM; Hyperlipidemia; Hypertension; insomnia; hj - PSHx: 16:20 Cholecystectomy; hj - Immunization history:: Adult Immunizations unknown. - Social history:: Smoking status: Patient uses tobacco products, Patient uses alcohol. - Ebola Screening: : Patient negative for fever greater than or equal to 101.5 degrees Fahrenheit, and additional compatible Ebola Virus Disease symptoms Patient denies exposure to infectious person Patient denies travel to an Ebola-affected area in the 21 days before illness onset. ROS: 16:50 Constitutional: Negative for fever, chills, and weight loss, Eyes: Negative for injury, kdr pain, redness, and discharge, ENT: Negative for injury, pain, and discharge, Neck: Negative for injury, pain, and swelling, Respiratory: Negative for shortness of breath, cough, wheezing, and pleuritic chest pain, Abdomen/GI: Negative for abdominal pain, nausea, vomiting, diarrhea, and constipation, Back: Negative for injury and pain, : Negative for injury, bleeding, discharge, and swelling, MS/Extremity: Negative for injury and deformity, Skin: Negative for injury, rash, and discoloration, Neuro: Negative for headache, weakness, numbness, tingling, and seizure activity. 16:50 Cardiovascular: Positive for chest pain, of the chest, Negative for edema, orthopnea, palpitations, paroxysmal nocturnal dyspnea, acute changes. Exam: 16:50 Constitutional: This is a well developed, well nourished obese patient who is awake, kdr alert, and in very mild distress. Head/Face: Normocephalic, atraumatic. Eyes: Pupils equal round and reactive to light, extra-ocular motions intact. Lids and lashes normal. Conjunctiva and sclera are non-icteric and not injected. Cornea within normal limits. Periorbital areas with no swelling, redness, or edema. Neck: Trachea midline, no thyromegaly or masses palpated, and no cervical lymphadenopathy. Supple, full range of motion without nuchal rigidity, or vertebral point tenderness. No Meningismus. Chest/axilla: Normal chest wall appearance and motion. Nontender with no deformity. No lesions are appreciated. Cardiovascular: Regular rate and rhythm with a normal S1 and S2. No gallops, murmurs, or rubs. Normal PMI, no JVD. No pulse deficits. Respiratory: Lungs have equal breath sounds bilaterally, clear to auscultation and percussion. No rales, rhonchi or wheezes noted. No increased work of breathing, no retractions or nasal flaring. Abdomen/GI: Soft, non-tender, with normal bowel sounds. No distension or tympany. No guarding or rebound. No evidence of tenderness throughout. Back: No spinal tenderness. No costovertebral tenderness. Full range of motion. Skin: Warm, dry with normal turgor. Normal color with no rashes, no lesions, and no evidence of cellulitis. MS/ Extremity: Pulses equal, no cyanosis. Neurovascular intact. Full, normal range of motion. Neuro: Awake and alert, GCS 15, oriented to person, place, time, and situation. Cranial nerves II-XII grossly intact. Motor strength 5/5 in all extremities. Sensory grossly intact. Cerebellar exam normal. Normal gait. Psych: Awake, alert, with orientation to person, place and time. Behavior, mood, and affect are within normal limits. Vital Signs: 16:21 BP 128 / 89; Pulse 113; Resp 18; Temp 97.9(TE); Pulse Ox 98% on R/A; Weight 119.75 kg; hj Height 5 ft. 10 in. (177.80 cm); Pain 7/10; 17:39 BP 124 / 75; Pulse 108; Resp 18; Pulse Ox 100% on R/A; hj 18:45 BP 120 / 75; Pulse 95; Resp 18; Pulse Ox 100% on R/A; hj 19:18 BP 120 / 75; Pulse 106; Resp 19; Pulse Ox 97% on R/A; Pain 0/10; ao 20:50 BP 121 / 74; Pulse 98; Resp 16; Pulse Ox 100% on R/A; Pain 0/10; ao 16:21 Body Mass Index 37.88 (119.75 kg, 177.80 cm) MDM: 16:50 HEART Score: History: Slightly Suspicious (0), ECG: Normal (0), Age: Risk Factors: 1 or kdr 2 risk factors (1), [DM] [Active Smoker] [Obesity]. Data reviewed: vital signs. 16:50 JERRY Risk Score: TOTAL SCORE = 0. kdr 19:11 Patient medically screened. marily 04/11 16:38 Order name: Basic Metabolic Panel; Complete Time: 19:32 kdr 04/11 16:38 Order name: BNP; Complete Time: 19:32 kdr 04/11 16:38 Order name: CBC with Diff; Complete Time: 19:32 kdr 04/11 16:38 Order name: Ckmb; Complete Time: 19:32 kdr 04/11 16:38 Order name: CPK; Complete Time: 19:32 kdr 04/11 16:38 Order name: LFT's; Complete Time: 19:32 kdr 04/11 16:38 Order name: Magnesium; Complete Time: 19:32 kdr 04/11 16:38 Order name: PT-INR; Complete Time: 19:32 kdr 04/11 16:38 Order name: Ptt, Activated; Complete Time: 19:32 kdr 04/11 16:38 Order name: Troponin (emerg Dept Use Only); Complete Time: 19:32 kdr 04/11 16:49 Order name: UDS; Complete Time: 19:32 kdr 04/11 18:00 Order name: Urine Dipstick--Ancillary (enter results) bd 04/11 18:59 Order name: Glucose, Ancillary Testing; Complete Time: 19:32 EDMS 04/11 19:34 Order name: Lipase marily 04/11 16:38 Order name: XRAY Chest (1 view); Complete Time: 19:32 kdr 04/11 16:38 Order name: EKG; Complete Time: 16:39 kdr 04/11 16:38 Order name: Cardiac monitoring; Complete Time: 16:38 kdr 04/11 16:38 Order name: EKG - Nurse/Tech; Complete Time: 16:38 kdr 04/11 16:38 Order name: IV Saline Lock; Complete Time: 16:38 kdr 04/11 16:38 Order name: Labs collected and sent; Complete Time: 16:39 kdr 04/11 16:38 Order name: O2 Per Protocol; Complete Time: 16:39 kdr 04/11 16:38 Order name: O2 Sat Monitoring; Complete Time: 16:39 kdr 04/11 16:38 Order name: Urine Dipstick-Ancillary (obtain specimen); Complete Time: 18:00 kdr 04/11 19:34 Order name: CT Chest For PE Angio marily 04/11 19:41 Order name: CONS Physician Consult EDMS Administered Medications: 16:38 Drug: NS 0.9% 1000 ml Route: IV; Rate: 1 bolus; Site: right antecubital; hj 21:33 Follow up: IV Status: Completed infusion; IV Intake: 1000ml ao 19:53 Drug: NS 0.9% 1000 ml Route: IV; Rate: 1 bolus; Site: right femoral; ao 21:33 Follow up: IV Status: Completed infusion ao 19:53 Drug: Aspirin Chewable Tablet 324 mg Route: PO; ao 21:32 Follow up: Response: No adverse reaction ao 19:53 Drug: Lovenox 100 mg Route: Sub-Q; Site: abdomen; ao 21:32 Follow up: Response: No adverse reaction ao 19:54 Drug: Magnesium Sulfate 2 grams Route: IVPB; Infused Over: 2 hrs; Site: right forearm; ao 21:33 Follow up: IV Status: Completed infusion; IV Intake: 100ml ao Point of Care Testing: Blood Glucose: 16:33 Blood Glucose: 195 mg/dL; hj Ranges: Critical Glucose Levels:Adult <50 mg/dl or >400 mg/dl <40 mg/dl or >180 mg/dl Disposition: 04/11/18 19:35 Hospitalization ordered by Federico Ram for Observation. Preliminary diagnosis are Chest pain, unspecified, Essential (primary) hypertension, Type 2 diabetes mellitus, Obesity, unspecified. - Bed requested for Telemetry/MedSurg (observation). - Status is Observation. ao - Condition is Fair. - Problem is new. - Symptoms have improved. UTI on Admission? No Signatures: Dispatcher [employer] Caitlin Hernandez RN RN kl Anderson, Corey, MD MD cha Rittger, Kevin, MD MD kdr Joaquin, Henry, RN RN Tim Goldberg RN RN ao Corrections: (The following items were deleted from the chart) 20:47 19:35 Hospitalization Ordered by Federico Ram MD for Observation. Preliminary kl diagnosis is Chest pain, unspecified; Essential (primary) hypertension; Type 2 diabetes mellitus; Obesity, unspecified. Bed requested for Telemetry/MedSurg (observation). Status is Observation. Condition is Fair. Problem is new. Symptoms have improved. UTI on Admission? No. marily 22:10 20:47 04/11/2018 19:35 Hospitalization Ordered by Federico Ram MD for Observation. ao Preliminary diagnosis is Chest pain, unspecified; Essential (primary) hypertension; Type 2 diabetes mellitus; Obesity, unspecified. Bed requested for Telemetry/MedSurg (observation). Status is Observation. Condition is Fair. Problem is new. Symptoms have improved. UTI on Admission? No. kl
[2018-04-11] MEDS ORDERED: D50W 25 GM/50 ML SYRINGE IV PRN (19:40)
[2018-04-11] MEDS ORDERED: GLUCAGON 1 MG/VIAL IM PRN (19:40)
[2018-04-11] MEDS ORDERED: ASPIRIN 81 MG CHEWABLE TABLET ONE (19:45)
[2018-04-11] MEDS ORDERED: Magnesium Sulfate 2gm IVPB 2 G/50 ML BAG IV ONE (19:46)
[2018-04-11] MEDS ORDERED: ENOXAPARIN 100 MG/ML SYR SQ ONE (19:46)
--- NOTE | 2018-04-11 20:10 | RAD REPORT ---
EXAM DESCRIPTION: CT - Chest For Pe Angio - 04/11/2018 7:59 pm CLINICAL HISTORY: Chest pain, chest tightness COMPARISON: Chest films same date, PE study May 2017 TECHNIQUE: Dynamically enhanced 3 mm thick images of the chest were obtained during administration o f approximately 150mL Isovue 370 IV contrast. Coronal and oblique reconstruction images were generate d and reviewed. Exam utilizes a protocol to evaluate the pulmonary arterial tree. All CT scans are performed using dose optimization technique as appropriate and may include automated exposure control or mA/KV adjustment according to patient size. FINDINGS: No pulmonary emboli are identified. The aorta as imaged shows no acute or suspicious finding. No pericardial thickening or effusion. No infiltrate or mass in the lung parenchyma. No pleural effusion or pleural thickening. No mediastinal or hilar suspicious masses. No chest wall masses or abnormal axillary lymphadenopathy. Limited upper abdomen imaging shows fatty infiltration of the liver. IMPRESSION: No pulmonary emboli identified. No other significant or suspicious chest finding. No significant change from comparison. Fatty infiltration of a partially imaged liver.
[2018-04-11 20:32] LABS: Urine Blood NEGATIVE (NEG); Urine Glucose 2+ (NEG); Urine Protein NEGATIVE (NEG)
--- NOTE | 2018-04-11 20:39 | P.HP ---
Certification for Inpatient Patient admitted to: Observation With expected LOS: <2 Midnights Practitioner: I am a practitioner with admitting privileges, knowledge of patient current condition, hospital course, and medical plan of care. Services: Services provided to patient in accordance with Admission requirements found in Title 42 Section 412.3 of the Code of Federal Regulations Patient History Date of Service: 04/11/18 Reason for admission: chest pain History of Present Illness: Mr Giron is a 32 years old male with history of HTN, DM II, obesity, who start feeling palpitations this afternoon after he had lunch. He went to [facility] and start having chest pain there. He describe the pain as tight, localized on the left parasternal area, radiated to left shoulder, 7/10 of intensity, associated with SOB and diaphoresis. No nausea or vomiting. He had that before and was told that was due to hypomagnesemia. Lab work shows normal Trop I, EKG remarkable for sinus tachycardia without ST-T abnormalities. Magnesium is low and BS elevated. Allergies NKDA Allergy (Uncoded 12/21/15 00:43) Unknown No Known Allerg Allergy (Uncoded 06/09/17 18:54) Unknown No Known Allergie Allergy (Uncoded 02/05/17 23:31) Unknown No Known Allergies Allergy (Uncoded 01/27/18 20:54) Unknown Home Medications: Dexlansoprazole [Dexilant] 60 mg PO DAILY 02/07/15 Lisinopril [Prinivil*] 20 mg PO DAILY 02/07/15 Gemfibrozil [Lopid] 600 mg PO DAILY #30 tab 02/08/15 Metoprolol Succinate [Toprol Xl*] 25 mg PO DAILY 03/20/15 [place]-3 Fatty Acids [Fish Oil] 2,400 mg PO DAILY 06/19/15 - Past Medical/Surgical History Diabetic: No -: hypertension -: gerd -: ibs -: colitis -: Diabetes Mellitus II -: cholecystectomy 2004 -: left knee scope -: r radial head replacement -: inguinal hernia repair 2004 - Family History Father -: Other (see notes) Notes: unknown Mother -: Other (see notes) Notes: unknown - Social History Smoking Status: Former smoker Alcohol use: Yes CD- Drugs: No Caffeine use: Yes Place of Residence: Home Review of Systems 10-point ROS is otherwise unremarkable Physical Examination - Physical Exam General: Alert, In no apparent distress HEENT: Atraumatic, PERRLA, Mucous membr. moist/pink, EOMI, Sclerae nonicteric Neck: Supple, 2+ carotid pulse no bruit, No LAD, Without JVD or thyroid abnormality Respiratory: Clear to auscultation bilaterally, Normal air movement Cardiovascular: Regular rate/rhythm, Normal S1 S2 Gastrointestinal: Normal bowel sounds, No tenderness Musculoskeletal: No tenderness Integumentary: No rashes Neurological: Normal speech, Normal strength at 5/5 x4 extr, Normal tone, Normal affect Lymphatics: No axilla or inguinal lymphadenopathy - Studies Laboratory Data (last 24 hrs) 04/11/18 16:55: PT 11.3, INR 0.96, APTT 23.3 L 04/11/18 16:55: WBC 7.3, Hgb 15.2, Hct 44.8, Plt Count 240 04/11/18 16:55: B-Natriuretic Peptide < 10 04/11/18 16:55: Sodium 134 L, Potassium 3.6, BUN 11, Creatinine 1.01, Glucose 249 H, Magnesium 1.5 L, Total Bilirubin 0.5, AST 63 H, ALT 59, Alkaline Phosphatase 90 Assessment and Plan - Problems (Diagnosis) (1) Diabetes mellitus Current Visit: Yes Status: Acute Qualifiers: Diabetes mellitus type: type 2 Diabetes mellitus custodial insulin use: without installment account checker use Diabetes mellitus complication status: with unspecified complications Qualified Code(s): E11.8 - Type 2 diabetes mellitus with unspecified complications (2) Chest pain Current Visit: Yes Status: Acute Qualifiers: Chest pain type: precordial pain Qualified Code(s): R07.2 - Precordial pain (3) HTN (hypertension) Current Visit: Yes Status: Acute Qualifiers: Hypertension type: essential hypertension Qualified Code(s): I10 - Essential (primary) hypertension (4) Obesity Current Visit: Yes Status: Acute Qualifiers: Obesity type: unspecified obesity type Obesity classification: unspecified obesity classification Serious obesity comorbidity presence: unspecified whether serious comorbidity present Qualified Code(s): E66.9 - Obesity, unspecified - Plan The patient will be admitted to the hospital due to chest pain. Initial Trop I negative. EKG shows sinus tachycardia without ST-T abnormalities, it is remarkable that metoprolol dose was cut to half dose a few weeks ago. Will check D-dimer, order serial troponins, ekg, order ECHO, cansult cardiology team. Chek HgbA1c, since BS is significantly elevated. - Advance Directives Does patient have a Living Will: No Does patient have a Durable POA for Healthcare: No - Code Status/Comfort Care Code Status Assessed: Yes Code Status: Full Code
[2018-04-11] MEDS ORDERED: ACETAMINOPHEN 500 MG TAB PO PRN (22:16)
[2018-04-11] MEDS ORDERED: ONDANSETRON 4 MG/2 ML VIAL IV PRN (22:16)
[2018-04-11 22:40] VITALS: BMI 37.8
[2018-04-11] MEDS: METOPROLOL TAR 50 MG TAB PO SCH (22:46)
[2018-04-11] MEDS: INSULIN -REGULAR HUMAN 50 UNIT/0.5 ML ML SQ SCH (22:47)
[2018-04-11] MEDS: MAGNESIUM OXIDE 400 MG TAB PO SCH (22:47)
--- NOTE | 2018-04-11 23:01 | EKG ---
Test Date: 2018-04-11 Test Time: 16:22:08 Test Bore Helper: GHAZALA MEASUREMENT RESULTS: Intervals: Rate: 112 MS: 138 QRSD: 80 QT: 328 QTc: 447 [place]: P: 38 MS: 138 QRS: 44 T: 22 INTERPRETIVE STATEMENTS: Sinus tachycardia Otherwise normal ECG Compared to ECG 01/27/2018 17:47:53 Sinus rhythm no longer present Electronically Signed On 04-11-18 23:00:01 CDT by Alvaro Crane
[2018-04-12 04:25] LABS: Absolute Lymphocytes (CBC) 3.4 K/uL (0.7-4.9); Absolute Monocytes 0.8 K/uL (0.1-1.3); Basophils % 0.4 % (0-1.3); Hematocrit 43.7 % (39.6-49.0); Lymphocytes % 45.9 % (15.3-44.8); MCH 28.8 pg (27.0-35.0); MCV 81.6 fL (80-100); MPV 8.5 fL (7.6-11.3); RBC Red Blood Cell Count 5.36 M/uL (4.33-5.43)
[2018-04-12 04:29] LABS: BUN Blood Urea Nitrogen 12 mg/dL (6-20); Bicarbonate 28 mEq/L (21-31); Glucose Level 211 mg/dL (65-120); Potassium 3.9 mEq/L (3.6-5.0); Sodium Level 137 mEq/L (135-145)
[2018-04-12] MEDS ORDERED: POTASSIUM 25 MEQ EFFERV TAB PO ONE (05:01)
[2018-04-12 05:42] VITALS: O2SAT 97
[2018-04-12 05:59] LABS: Magnesium 2.1 mg/dL (1.8-2.5)
[2018-04-12] MEDS ORDERED: REGADENOSON 0.4 MG/5 ML SYR IV ONE (07:44)
[2018-04-12 08:46] VITALS: TEMP 97
[2018-04-12] MEDS ORDERED: ASPIRIN 81 MG CHEWABLE TABLET PO SCH (09:00)
[2018-04-12] MEDS: METOPROLOL TAR 50 MG TAB PO SCH (09:00)
[2018-04-12] MEDS: MAGNESIUM OXIDE 400 MG TAB PO SCH (09:00)
[2018-04-12] MEDS ORDERED: GABAPENTIN 300 MG CAP PO SCH (09:00)
[2018-04-12] MEDS: INSULIN -REGULAR HUMAN 50 UNIT/0.5 ML ML SQ SCH ×2 (09:53→13:41)
[2018-04-12] MEDS: ENOXAPARIN 40 MG/0.4 ML SQ SCH ×2 (09:56→13:41)
[2018-04-12] MEDS ORDERED: NITROGLYCERIN 0.4 MG/TAB SL ONE (10:03)
[2018-04-12] MEDS ORDERED: NA CHLORIDE 0.9% 1,000 ML IV ONE (10:03)
[2018-04-12] MEDS ORDERED: MORPHINE 4 MG/ML SYR IV PRN (10:08)
[2018-04-12 11:12] LABS: A1c Component 1.6 mg/dL; Hemoglobin A1c 11.5 % (4-6.0)
--- NOTE | 2018-04-12 11:32 | EKG ---
Test Date: 2018-04-12 Test Time: 10:13:01 Assistant Finance Manager: HOLLIE MEASUREMENT RESULTS: Intervals: Rate: 84 [place]: 142 QRSD: 84 QT: 362 QTc: 427 [place]: P: 52 [place]: 142 QRS: 45 T: 14 INTERPRETIVE STATEMENTS: Normal sinus rhythm Normal ECG Compared to ECG 04/11/2018 16:22:08 Sinus tachycardia no longer present Electronically Signed On 04-12-18 11:31:48 CDT by Antwan Jamison
--- NOTE | 2018-04-12 12:38 | ECHO ---
HEIGHT: 5 ft 10 in WEIGHT: 264 lb 0 oz DATE OF STUDY: 04/12/[address]: Antwan Jamison MD 2-DIMENSIONAL: YES M.MODE: YES DOPPLER: YES COLOR FLOW: YES TDS: NO PORTABLE: NO DEFINITY: NO BUBBLE STUDY: NO DIAGNOSIS: CHEST PAIN CARDIAC HISTORY: CATHERIZATION: NO SURGERY: NO PROSTHETIC VALVE: NO PACEMAKER: NO MEASUREMENTS (cm) DIASTOLIC (NORMALS) SYSTOLIC (NORMALS) IVSd 1.1 (0.6-1.2) LA Diam 4.0 (1.9-4.0) LVEF 50-55% LVIDd 5.0 (3.5-5.7) LVIDs 3.9 (2.0-3.5) %FS % LVPWd 1.0 (0.6-1.2) Ao Diam 2.9 (2.0-3.7) 2 DIMENSIONAL ASSESSMENT: RIGHT ATRIUM: NORMAL LEFT ATRIUM: NORMAL RIGHT VENTRICLE: NORMAL LEFT VENTRICLE: NORMAL TRICUSPID VALVE: NORMAL MITRAL VALVE: NORMAL PULMONIC VALVE: NORMAL AORTIC VALVE: NORMAL PERICARDIAL EFFUSION: NONE AORTIC ROOT: NORMAL LEFT VENTRICULAR WALL MOTION: NORMAL. DOPPLER/COLOR FLOW: NORMAL. COMMENTS: NORMAL 2D ECHO WITH DOPPLER. NO WALL MOTION ABNORMALITY. NO EFFUSION. TECHNOLOGIST: BELLA LYLES
--- NOTE | 2018-04-12 12:42 | RAD REPORT ---
EXAM DESCRIPTION: NM - Rest Stress Cardiac Imaging - 04/12/2018 12:34 pm CLINICAL HISTORY: Chest pain. COMPARISON: None. TECHNIQUE: The patient was administered approximately 10mCi of Tc 99m Sestamibi prior to resting SPE CT imaging of the heart. The patient was then administered approximately 30 mCi of Tc 99m Sestamibi f ollowing exercise or pharmacologic stress. Multiplanar SPECT images were reviewed. FINDINGS: No stress induced ischemic defect is seen to suggest stress induced ischemia. No fixed def ect is seen to suggest hibernating myocardium or scarred myocardium. The end diastolic volume is 147 ml, the end systolic volume is 88 ml, and the ejection fraction is 40 %. IMPRESSION: No stress induced ischemia.
[2018-04-12] MEDS ORDERED: NITROGLYCERIN 0.4 MG/TAB SL PRN (13:46)
[2018-04-12 13:52] VITALS: BP 106/67
[2018-04-12] MEDS ORDERED: LORazepam 2 MG/ML VIAL IV ONE (14:00)
[2018-04-12] MEDS ORDERED: BUSPIRONE HCL 5 MG TABLET PO SCH (14:00)
--- NOTE | 2018-04-12 14:05 | P.DS ---
Admission Date: 04/11/18 Discharge Date: 04/12/18 Primary Care Provider: CT Disposition: ROUTINE DISCHARGE Reason for Admission: chest pain Consultations: Cardiology Dr. Jamison Procedures: Nuclear stress test no stress-induced ischemia - Problems (1) Generalized anxiety disorder Current Visit: Yes Status: Acute (2) Chest pain Onset Date: 04/12/18 Current Visit: Yes Status: Acute Qualifiers: Chest pain type: precordial pain Qualified Code(s): R07.2 - Precordial pain (3) Diabetes mellitus Onset Date: 04/12/18 Current Visit: Yes Status: Acute Qualifiers: Diabetes mellitus type: type 2 Diabetes mellitus watermaster insulin use: without watermaster use Diabetes mellitus complication status: with unspecified complications Qualified Code(s): E11.8 - Type 2 diabetes mellitus with unspecified complications (4) HTN (hypertension) Onset Date: 04/12/18 Current Visit: Yes Status: Acute Qualifiers: Hypertension type: essential hypertension Qualified Code(s): I10 - Essential (primary) hypertension (5) Obesity Onset Date: 04/12/18 Current Visit: Yes Status: Acute Qualifiers: Obesity type: unspecified obesity type Obesity classification: unspecified obesity classification Serious obesity comorbidity presence: unspecified whether serious comorbidity present Qualified Code(s): E66.9 - Obesity, unspecified Brief History of Present Illness: From H and P. Mr Giron is a 32 years old male with history of HTN, DM II, obesity, who start feeling palpitations this afternoon after he had lunch. He went to [facility] clinic and start having chest pain there. He describe the pain as tight, localized on the left parasternal area, radiated to left shoulder, 7/10 of intensity, associated with SOB and diaphoresis. No nausea or vomiting. He had that before and was told that was due to hypomagnesemia. Lab work shows normal Trop I, EKG remarkable for sinus tachycardia without ST-T abnormalities. Magnesium is low and BS elevated. Hospital Course: Patient is a 32-year-old male with past medical history of hypertension diabetes who comes in with the chest pain. Patient was admitted for chest pain rule out ACS. His cardiac enzymes were negative x3. EKG showed normal sinus rhythm. Patient was seen by cardiology and had a stress test done which was negative. Did not show any stress-induced ischemia. Patient does have multiple psychiatric diagnosis including anxiety. Patient was given anti anxiety medications which improved his on chest pain. Likely atypical chest pain with panic disorder generalized anxiety disorder. Patient was cleared for discharge from cardiac standpoint. His echocardiogram did not show any wall motion abnormalities his ejection fraction was normal. Vital Signs/Physical Exam: Temp Pulse Resp BP Pulse Ox 97 F 82 18 106/67 97 04/12/18 08:00 04/12/18 13:34 04/12/18 13:34 04/12/18 13:34 04/12/18 12:40 General: Alert, In no apparent distress, Oriented x3, Obese HEENT: Atraumatic, PERRLA, EOMI Neck: Supple, JVD not distended Respiratory: Clear to auscultation bilaterally, Normal air movement Cardiovascular: No edema, Normal pulses, Regular rate/rhythm, Normal S1 S2 Gastrointestinal: Normal bowel sounds, Soft and benign, Non-distended, No tenderness Musculoskeletal: No clubbing, No tenderness Integumentary: No rashes, No erythema, No cyanosis Neurological: Normal speech, Normal tone, Cranial nerves 3-12 intact, Normal affect Laboratory Data at Discharge: WBC 7.3 K/uL (4.3-10.9) 04/12/18 03:41 Hgb 15.4 g/dL (13.6-17.9) 04/12/18 03:41 Hct 43.7 % (39.6-49.0) 04/12/18 03:41 Plt Count 239 K/uL (152-406) 04/12/18 03:41 PT 11.3 SECONDS (9.5-12.5) 04/11/18 16:55 INR 0.96 04/11/18 16:55 APTT 23.3 SECONDS (24.3-36.9) L 04/11/18 16:55 Sodium 137 mEq/L (135-145) 04/12/18 03:41 Potassium 3.9 mEq/L (3.6-5.0) 04/12/18 03:41 BUN 12 mg/dL (6-20) 04/12/18 03:41 Creatinine 0.77 mg/dL (0.61-1.24) 04/12/18 03:41 Glucose 211 mg/dL (65-120) H 04/12/18 03:41 Magnesium 2.1 mg/dL (1.8-2.5) D 04/12/18 03:41 Total Bilirubin 0.5 mg/dL (0.3-1.2) 04/11/18 16:55 AST 63 IU/L (10-42) H 04/11/18 16:55 ALT 59 IU/L (10-60) 04/11/18 16:55 Alkaline Phosphatase 90 IU/L (42-121) 04/11/18 16:55 Troponin I < 0.03 ng/mL (<0.03) 04/12/18 10:33 B-Natriuretic Peptide < 10 pg/ml (<=100) 04/11/18 16:55 Lipase 23 U/L (22-51) 04/11/18 22:27 Home Medications: Dexlansoprazole [Dexilant] 60 mg PO DAILY 02/07/15 Metoprolol Succinate [Toprol Xl*] 25 mg PO DAILY 03/20/15 Buspirone HCl 5 mg PO TID 04/11/18 Cyanocobalamin [Vitamin B-12*] 1,000 mcg PO DAILY 04/11/18 Empagliflozin [Jardiance] 10 mg PO DAILY 04/11/18 Fenofibrate [Tricor*] 145 mg PO DAILY 04/11/18 Gabapentin 1,200 mg PO BID 04/11/18 Insulin Aspart [Novolog] 60 unit SQ TIDWM 04/11/18 Insulin Glargine,Hum.rec.anlog [Lantus] 70 unit SQ BID 04/11/18 Lisinopril 40 mg PO DAILY 04/11/18 Metformin HCl 1,000 mg PO BID 04/11/18 Venlafaxine HCl [Effexor XR] 150 mg PO DAILY 04/11/18 Patient Discharge Instructions: Follow up with primary care physician at the CT in 2-3 days. Follow up with casing cleaner Dr. Jamison in 2 weeks. Return to ER for worsening condition Diet: ADA Activity: Ad leroy
--- NOTE | 2018-04-12 16:08 | CON ---
Admitted to Dr. Dean's service on 04/11/2018. Reason For Consultation: Palpitation and chest pain. History Of Present Illness: Mr. Giron is a 32-year-old white male, unfortunately has multiple medi vipin problems for his age including diabetes, high cholesterol, high triglyceride, hypertension, depre ssion. He takes many medicines including lisinopril, metformin, metoprolol, , Dexilant, bu spirone, Jardiance, and Tricor. Came in some palpitations with some sharp chest pain. No nausea, vomiting, diaphoresis, PND, orthopnea, pedal edema, or syncope. D-dimer was [address] angiogram. Glucose was 211, magnesium 1.5. Chest x-ray is normal. EKG is normal. Past Medical History: As stated above. Medicines: Stated above. Allergies: NONE. Review of Systems: Negative. Social History: Negative. [facility] and [facility] most of [facility]. He recently saw an e ndocrinologist . Physical Examination: Vital Signs: Stable. Afebrile. HEENT: Negative. Neck: Supple with no bruit. Chest: Clear to auscultation and percussion. Cardiac: Revealed a regular rhythm and rate without any murmurs, gallops, or rubs. Abdomen: Benign. Extremities: Revealed no clubbing, cyanosis, or edema. Diagnostic Data: As stated earlier. Impression And Plan: 1.Palpitation, most likely consistent with sinus tachycardia, maybe some anxiety and depression issu e. 2.Atypical chest pain, sounds pleuritic. 3.Multiple cardiac risk factors including diabetes, dyslipidemia and hypertension, on polypharmacy, fairly well controlled. I think he deserve an echocardiogram and a Lexiscan before making final deci sions. MCKENNA/MARVINL Voice ID: [id number] Report ID: [id number]
[2018-04-12] MEDS ORDERED: INSULIN ASPART 60 UNIT SQ SCH (17:00)
[2018-04-12] MEDS ORDERED: INSULIN LISPRO 100 UNIT/1 ML SQ SCH (17:00)
[2018-04-12] MEDS ORDERED: INSULIN DETEMIR 100 UNIT/1 ML INSULIN SQ SCH (21:00)
[2018-04-12] MEDS ORDERED: INSULIN GLARGINE HUM REC ANLOG 70 UNIT SQ SCH (21:00)
[2018-04-13] MEDS ORDERED: PANTOPRAZOLE 40MG TABLET PO SCH (07:30)
--- NOTE | 2018-04-13 08:09 | TREADPHA ---
DX: CHEST PAIN Date of Study: 04/12/2018 Ht: 5 10 Wt: 264 lb 0 oz Consulting Physician: CELE MEDICATIONS: TYLENOL, ASPIRIN, DEXTROSE, LOVENOX, NEURONTIN, GLUCAGEN, NOVOLIN, LOPRESSOR, ZOFRAN, MAGNESIUM HISTORY: 32 YEAR OLD MALE WITH COMPLAINTS OF CHEST PAIN. MEDICAL HISTORY OF DEPRESSION, DIABETES MELLITUS, HYPERTENSION AND INSOMNIA PHYSICIAL EXAMINATION: RESTING B.P.: 116/72 RESTING H.R.: 82 RESTING EKG: NORMAL PROTOCOL: LEXISCAN EXERCISE TIME: 3:30 B.P. AT PEAK STRESS: 117/73 IMPRESSION: LEXISCAN INJECTED, CARDIOLITE INJECTED PER PROTOCOL. SEE NUCLEAR MEDICINE REPORT. NO SUPRAVENTRICULAR TACHYCARDIA. NO VENTRICULAR TACHYCARDIA. NO PREMATURE VENTRICULAR COMPLEXES. DENIED CHEST PAIN. NON-DIAGNOSTIC ELECTROCARDIOGRAM WITH LEXISCAN STRESS.
[2018-04-13] MEDS ORDERED: LISINOPRIL 20 MG TAB PO SCH ×2 (09:00)
[2018-04-13] MEDS ORDERED: VENLAFAXINE HCL XR 75 MG CAP PO SCH (09:00)
[2018-04-13] MEDS ORDERED: HOME MED 1 EA UNK (Dexlansoprazole [Dexilant] 60 MG) PO SCH (09:00)
[2018-04-13] MEDS ORDERED: HOME MED 1 EA UNK (Venlafaxine Hcl [Effexor Xr] 150 MG) PO SCH (09:00)
[2018-04-13] MEDS ORDERED: FENOFIBRATE 160 MG TAB PO SCH (09:00)
[2018-04-13] MEDS ORDERED: HOME MED 1 EA UNK (Lisinopril [Lisinopril] 40 MG) PO SCH (09:00)
[2018-04-13] MEDS ORDERED: HOME MED 1 EA UNK (Empagliflozin [Jardiance] 10 MG) PO SCH (09:00)
== END 2018-04-12 16:00 | disposition home or self-care (01) ==
LOC: ER 16:13 → ERHOLD 20:27 → 4TH 21:17
PROVIDERS: ADMIT Internal Medicine; ATTEND Internal Medicine
DX: R07.2 Precordial pain (principal); F41.1 Generalized anxiety disorder; E11.9 Type 2 diabetes mellitus without complications; I10 Essential (primary) hypertension; E66.9 Obesity, unspecified; Z68.37 Body mass index [BMI] 37.0-37.9, adult
CPT/HCPCS: 36415; 71045; 71275; 78452; 80048; 80076; 80307; 81003; 82550; 82553; 82962; 83036; 83690; 83735; 83880; 84484; 85025; 85379; 85610; 85730; 93005; 93017; 93306; 96361; 96365; 96366; 96372; 99285; A9500; G0378; J1650; J2785; J3475; J7030; Q9967

== ENCOUNTER → 2023-12-22 | Emergency (ER) | payer OTHER ==
[~2023-12-22] MED LIST: ASPIRIN 81 MG CHEWABLE TABLET ONE; MORPHINE 4 MG/ML SYR ONE; NA CHLORIDE 0.9% 1,000 ML ONE; ONDANSETRON 4 MG/2 ML VIAL ONE; PANTOPRAZOLE 40 MG INJ ONE; POTASSIUM 25 MEQ EFFERV TAB ONE
[2023-12-22 22:41] LABS: Absolute Lymphocytes (CBC) 2.8 K/uL (0.7-4.9); Hematocrit 36.5 % (39.6-49.0); Lymphocytes % 31.2 % (15.3-44.8); MCV 68.5 fL (80-100); Platelets 331 thou/uL (152-406); RBC Red Blood Cell Count 5.33 M/uL (4.33-5.43)
[2023-12-22 22:42] LABS: Protime INR 0.99
[2023-12-22 22:53] LABS: SARS-CoV-2 Antigen Rapid Res Negative (Negative)
[2023-12-22 23:06] LABS: ALT/SGPT 42 U/L (16-61); AST/SGOT 25 U/L (15-37); Albumin 3.6 g/dL (3.4-5.0); Alkaline Phosphatase 114 U/L (45-117); BUN Blood Urea Nitrogen 8 mg/dL (7-18); Bicarbonate 27 mEq/L (21-32); Bilirubin Direct 0.2 mg/dL (0-0.2); Bilirubin Indirect, Calculated 0.4 mg/dL (0.2-0.8); Bilirubin Total 0.6 mg/dL (0.2-1.0); Glomerular Filtration Rate 92 ml/min (=/>90); Glucose Level 116 mg/dL (74-106); Potassium 3.2 mEq/L (3.5-5.1); Protein, Total 7.4 g/dL (6.4-8.2); Sodium Level 141 mEq/L (136-145)
[2023-12-22 23:10] LABS: NT PRO-BNP < 5 pg/mL (<125); Troponin High Sensitivity < 3.0 pg/mL (<58.9)
[2023-12-23] LABS: Specific Gravity 1.019 (1.005-1.030); Urine Bilirubin NEGATIVE (Negative); Urine Blood Negative (Negative); Urine Clarity Clear (Clear); Urine Color Light-Yellow (Yellow); Urine Glucose 3+ (Negative); Urine Protein NEGATIVE (Negative); Urine Urobilinogen Normal (Normal); Urine pH 6.5 (5.0-7.0)
[2023-12-23 00:09] LABS: Barbiturates NEGATIVE (NEGATIVE); Benzodiazepines NEGATIVE (NEGATIVE); Cocaine NEGATIVE (NEGATIVE); METHAMPHETAM NEGATIVE (NEGATIVE); Methadone NEGATIVE (NEGATIVE); Opiates NEGATIVE (NEGATIVE); Phencyclidine NEGATIVE (NEGATIVE); THC Cannibis NEGATIVE (NEGATIVE)
--- NOTE | 2023-12-23 01:51 | ER ---
Nurse's Notes [facility] Name: Marc Giron Age: 38 yrs Sex: Male : 1985 Arrival Date: 12/22/2023 Time: 21:52 Bed 13 Private MD: Diagnosis: Chest pain, unspecified;Epigastric abdominal tenderness;Vomiting;Hypokalemia Presentation: 12/22 22:06 Chief complaint: Patient states: Pt c/o chest pressure after eating anything x 1 week. tl4 Pt c/o upper abdominal pain, nausea, vomiting with blood and tachycardia. Pt states symptoms are not constant but happen frequently. Pt states appetite is very decreased and has lost 10 lbs. Coronavirus screen: At this time, the client does not indicate any symptoms associated with coronavirus-19. Ebola Screen: No symptoms or risks identified at this time. Initial Sepsis Screen: Does the patient meet any 2 criteria? No. Patient's initial sepsis screen is negative. Does the patient have a suspected source of infection? No. Patient's initial sepsis screen is negative. Risk Assessment: Do you want to hurt yourself or someone else? Patient reports no desire to harm self or others. Onset of symptoms was December 16, 2023. 22:06 Method Of Arrival: Ambulatory tl4 22:06 Acuity: MARGARITA 2 tl4 Triage Assessment: 22:12 General: Appears distressed, uncomfortable, Behavior is cooperative. Pain: Complains of tl4 pain in chest and abdomen. EENT: No deficits noted. No signs and/or symptoms were reported regarding the EENT system. Neuro: Reports headache Denies weakness blurred vision dizziness. Cardiovascular: Chest pain. Respiratory: No deficits noted. Denies cough, shortness of breath. GI: Reports nausea, vomiting. : No deficits noted. No signs and/or symptoms were reported regarding the genitourinary system. Derm: No deficits noted. No signs and/or symptoms reported regarding the dermatologic system. Historical: - Allergies: 22:12 No Known Allergies; tl4 - PMHx: 22:12 Depression; Diabetes - NIDDM; Hyperlipidemia; Hypertension; insomnia; tl4 - PSHx: 22:12 Gastric Bypass (ia); tl4 - Immunization history:: Adult Immunizations unknown. - Social history:: Smoking status: Reported history of juuling and/or vaping. Screenin:00 [facility] ED Fall Risk Assessment (Adult) History of falling in the last 3 months, ha1 including since admission No falls in past 3 months (0 pts) Confusion or Disorientation No (0 pts) Intoxicated or Sedated No (0 pts) Impaired Gait No (0 pts) Mobility Assist Device Used No (0 pt) Altered Elimination No (0 pt) Score/Fall Risk Level 0 - 2 = Low Risk Oriented to surroundings, Maintained a safe environment, Hourly rounding (assess needs \T\ fall precautionary measures) done. Abuse screen: Denies threats or abuse. Denies injuries from another. Nutritional screening: No deficits noted. Tuberculosis screening: No symptoms or risk factors identified. Assessment: 22:14 General: Appears uncomfortable, Behavior is cooperative. Pain: Complains of pain in ha1 epigastric area and chest Pain does not radiate. Pain currently is 5 out of 10 on a pain scale. Quality of pain is described as burning, pressure, Pain began suddenly, 2 hours ago. Neuro: Level of Consciousness is awake, alert, obeys commands, Oriented to person, place, time, situation. Cardiovascular: Heart tones S1 S2 present Capillary refill < 3 seconds Patient's skin is warm and dry. Rhythm is sinus tachycardia. Cardiovascular: Reports chest pain, shortness of breath. Respiratory: Airway is patent Respiratory effort is even, unlabored, Respiratory pattern is regular, symmetrical. Respiratory: Reports shortness of breath at rest. GI: Abdomen is round non-distended, Bowel sounds present X 4 quads. Reports epigastric pain, vomiting. Musculoskeletal: Circulation, motion, and sensation intact. Range of motion: intact in all extremities. 23:10 Reassessment: Patient and/or family updated on plan of care and expected duration. Pain ha1 level reassessed. Patient is alert, oriented x 3, equal unlabored respirations, skin warm/dry/pink. 12/23 00:12 Reassessment: Patient and/or family updated on plan of care and expected duration. Pain ha1 level reassessed. Patient is alert, oriented x 3, equal unlabored respirations, skin warm/dry/pink. pain 2/10 Patient states feeling better. Patient states symptoms have improved. 01:10 Reassessment: Patient and/or family updated on plan of care and expected duration. Pain ha1 level reassessed. Patient is alert, oriented x 3, equal unlabored respirations, skin warm/dry/pink. 02:00 Reassessment: Patient and/or family updated on plan of care and expected duration. Pain ha1 level reassessed. Patient is alert, oriented x 3, equal unlabored respirations, skin warm/dry/pink. Patient denies pain at this time. Patient states feeling better. Patient states symptoms have improved. Vital Signs: 12/22 22:06 BP 160 / 95; Pulse 113; Resp 22; Temp 98.4(TE); Pulse Ox 100% ; Weight 97.07 kg; Height tl4 5 ft. 10 in. ; Pain 8/10; 22:45 BP 147 / 103; Pulse 90; Resp 17 S; Pulse Ox 98% on R/A; ha1 23:08 BP 130 / 81; Pulse 77; Resp 17 S; Pulse Ox 98% on R/A; ha1 23:40 BP 144 / 103; Pulse 80; Resp 17 S; Pulse Ox 98% on R/A; ha1 12/23 00:30 BP 128 / 92; Pulse 77; Resp 17 S; Pulse Ox 99% on R/A; ha1 01:00 BP 126 / 85; Pulse 72; Resp 17 S; Pulse Ox 98% on R/A; ha1 02:00 BP 131 / 91; Pulse 83; Resp 17 S; Pulse Ox 98% on R/A; ha1 12/22 22:06 Body Mass Index 30.71 (97.07 kg, 177.8 cm) tl4 12/22 22:06 Pain Scale: Adult tl4 ED Course: 12/22 21:53 Patient arrived in ED. rg4 22:05 Rohan Barber MD is Attending Physician. [facility] 22:11 Triage completed. tl4 22:11 Arm band placed on right wrist. tl4 22:14 Patient has correct armband on for positive identification. Placed in gown. Bed in low ha1 position. Call light in reach. Side rails up X 1. Adult w/ patient. Client placed on continuous cardiac and pulse oximetry monitoring. NIBP monitoring applied. 22:14 Patient maintains SpO2 saturation greater than 95% on room air. ha1 22:20 Inserted saline lock: 20 gauge in right antecubital area, using aseptic technique. ha1 Blood collected. 22:26 Summer Li, RN is Primary Nurse. ha1 22:26 Basic Metabolic Panel Sent. ha1 22:26 CBC with Diff Sent. ha1 22:26 LFT's Sent. ha1 22: Magnesium Sent. ha1 22: NT PRO-BNP Sent. ha1 22:27 PT-INR Sent. ha1 22:27 Troponin HS Sent. ha1 22:27 SARS RAPID Sent. ha1 22:27 Flu Sent. ha1 22:27 TSH Sent. ha1 23:30 XRAY Chest (1 view) In Process Unspecified. EDMS 12/23 00:12 CT Chest For PE Angio In Process Unspecified. EDMS 00:12 CT Abd/Pelvis - PO and IV Contrast In Process Unspecified. EDMS 01:51 Saray Reyna MD is Referral Physician. [facility] 02:34 No provider procedures requiring assistance completed. IV discontinued, intact, ha1 bleeding controlled, No redness/swelling at site. Pressure dressing applied. 02:35 Provided Education on: follow up with GI and medication administration . ha1 Administered Medications: 12/22 22:30 Drug: NS 0.9% IV 1000 ml IV at 1 bolus Per protocol; 1000 mL bolus Route: IV; Rate: 1 ha1 bolus; Site: right antecubital; 12/23 00:49 Follow up: Response: No adverse reaction; IV Status: Completed infusion; IV Intake: ha1 1000ml 12/22 22:30 Drug: Aspirin PO Chewable Tablet 324 mg PO once; 81 mg tablets x 4 Route: PO; ha1 23:00 Follow up: Response: No adverse reaction ha1 22:30 Drug: Ondansetron IVP 4 mg IVP once; over 2 minutes Route: IVP; Site: right antecubital;ha1 23:00 Follow up: Response: No adverse reaction ha1 23:15 Drug: morphine IVP or IV 4 mg IVP once over 4 mins Route: IVP; Infused Over: 4 mins; ha1 Site: right antecubital; 23:50 Follow up: Response: No adverse reaction; Marked relief of symptoms; Pain is decreased; ha1 RASS: Alert and Calm (0) 23:15 Drug: NS 0.9% IV 1000 ml IV at 1 bolus Per protocol; 1000 mL bolus Route: IV; Rate: 1 ha1 bolus; Site: right antecubital; 12/23 02:34 Follow up: Response: No adverse reaction; IV Status: Completed infusion; IV Intake: ha1 1000ml 12/22 23:18 Drug: Pantoprazole IVP 40 mg IVP once Route: IVP; Site: right antecubital; ha1 12/23 00:00 Follow up: Response: No adverse reaction ha1 02:15 Drug: Potassium PO Effervescent Tablet 50 mEq PO once; dissolve in 4 ounces of water or ha1 juice Route: PO; 02:33 Follow up: Response: No adverse reaction ha1 02:33 Not Given (Physician Discretion): ns 0.9% with kcl20 meq/l 1000 ml IV at 125 ml/hr ha1 continuous Medication: 00:38 VIS not applicable for this client. ha1 Intake: 00:49 IV: 1000ml; Total: 1000ml. ha1 02:34 IV: 1000ml; Total: 2000ml. ha1 Outcome: 01:51 Discharge ordered by . marily 02:35 Discharged to home ambulatory, with family, ha1 02:35 Condition: stable 02:35 Discharge instructions given to patient, family, Instructed on discharge instructions, follow up and referral plans. medication usage, Demonstrated understanding of instructions, follow-up care, medications, Prescriptions given X 4, 02:39 Patient left the ED. ha1 Signatures: Dispatcher [employer] EDMS Rohan Barber MD MD cha Garcia, Tiara rg4 Summer Li RN RN 1 Greyson Nunez RN RN tl4 Corrections: (The following items were deleted from the chart) 00:31 00:30 Reassessment: Patient and/or family updated on plan of care and expected ha1 duration. Pain level reassessed. Patient is alert, oriented x 3, equal unlabored respirations, skin warm/dry/pink. pain 2/10 Patient states feeling better. Patient states symptoms have improved. ha1
--- NOTE | 2023-12-23 01:52 | EDPHYS ---
Physician Documentation [facility] Name: Marc Giron Age: 38 yrs Sex: Male : 1985 Arrival Date: 12/22/2023 Time: 21:52 Bed 13 Private MD: ED Physician Rohan Barber HPI: 12/22 23:07 This 38 yrs old Male presents to ER via Ambulatory with complaints of Chest marily Tightness, Palpitations, Vomiting. 23:07 The patient or guardian reports chest pain that is located primarily in the anterior marily chest wall, bilaterally. Onset: today. Historical: - Allergies: 22:12 No Known Allergies; tl4 - PMHx: 22:12 Depression; Diabetes - NIDDM; Hyperlipidemia; Hypertension; insomnia; tl4 - PSHx: 22:12 Gastric Bypass (ia); tl4 - Immunization history:: Adult Immunizations unknown. - Social history:: Smoking status: Reported history of juuling and/or vaping. ROS: 23:08 Constitutional: Negative for fever, chills, and weight loss, Eyes: Negative for injury, marily pain, redness, and discharge, ENT: Negative for injury, pain, and discharge, Neck: Negative for injury, pain, and swelling, Respiratory: Negative for shortness of breath, cough, wheezing, and pleuritic chest pain, Back: Negative for injury and pain, : Negative for injury, bleeding, discharge, and swelling, MS/Extremity: Negative for injury and deformity, Skin: Negative for injury, rash, and discoloration, Neuro: Negative for headache, weakness, numbness, tingling, and seizure, Psych: Negative for depression, anxiety, suicide ideation, homicidal ideation, and hallucinations, Allergy/Immunology: Negative for hives, rash, and allergies, Endocrine: Negative for neck swelling, polydipsia, polyuria, polyphagia, and marked weight changes, Hematologic/Lymphatic: Negative for swollen nodes, abnormal bleeding, and unusual bruising, 23:08 Abdomen/GI: Positive for abdominal pain, nausea and vomiting, of the right upper quadrant and left upper quadrant, Exam: 23:08 Constitutional: This is a well developed, well nourished patient who is awake, alert, marily and in no acute distress. Head/Face: Normocephalic, atraumatic. Eyes: Pupils equal round and reactive to light, extra-ocular motions intact. Lids and lashes normal. Conjunctiva and sclera are non-icteric and not injected. Cornea within normal limits. Periorbital areas with no swelling, redness, or edema. ENT: Nares patent. No nasal discharge, no septal abnormalities noted. Tympanic membranes are normal and external auditory canals are clear. Oropharynx with no redness, swelling, or masses, exudates, or evidence of obstruction, uvula midline. Mucous membranes moist. Neck: Trachea midline, no thyromegaly or masses palpated, and no cervical lymphadenopathy. Supple, full range of motion without nuchal rigidity, or vertebral point tenderness. No Meningismus. Chest/axilla: Normal chest wall appearance and motion. Nontender with no deformity. No lesions are appreciated. Respiratory: Lungs have equal breath sounds bilaterally, clear to auscultation and percussion. No rales, rhonchi or wheezes noted. No increased work of breathing, no retractions or nasal flaring. Back: No spinal tenderness. No costovertebral tenderness. Full range of motion. Male : Normal genitalia with no discharge or lesions. Skin: Warm, dry with normal turgor. Normal color with no rashes, no lesions, and no evidence of cellulitis. MS/ Extremity: Pulses equal, no cyanosis. Neurovascular intact. Full, normal range of motion. Neuro: Awake and alert, GCS 15, oriented to person, place, time, and situation. Cranial nerves II-XII grossly intact. Motor strength 5/5 in all extremities. Sensory grossly intact. Cerebellar exam normal. Normal gait. Psych: Awake, alert, with orientation to person, place and time. Behavior, mood, and affect are within normal limits. 23:08 Cardiovascular: Rate: tachycardic, actual rate is 90 bpm, Rhythm: regular, Pulses: Pulses are 4+ in bilateral radial, brachial, femoral, popliteal, posterior tibial and and dorsalis pedis arteries.. Heart sounds: normal, Edema: is not appreciated, JVD: is not appreciated, 23:08 ECG was reviewed by the Attending Physician. Vital Signs: 22:06 BP 160 / 95; Pulse 113; Resp 22; Temp 98.4(TE); Pulse Ox 100% ; Weight 97.07 kg; Height tl4 5 ft. 10 in. ; Pain 8/10; 22:45 BP 147 / 103; Pulse 90; Resp 17 S; Pulse Ox 98% on R/A; ha1 23:08 BP 130 / 81; Pulse 77; Resp 17 S; Pulse Ox 98% on R/A; ha1 23:40 BP 144 / 103; Pulse 80; Resp 17 S; Pulse Ox 98% on R/A; ha1 12/23 00:30 BP 128 / 92; Pulse 77; Resp 17 S; Pulse Ox 99% on R/A; ha1 01:00 BP 126 / 85; Pulse 72; Resp 17 S; Pulse Ox 98% on R/A; ha1 02:00 BP 131 / 91; Pulse 83; Resp 17 S; Pulse Ox 98% on R/A; ha1 12/22 22:06 Body Mass Index 30.71 (97.07 kg, 177.8 cm) tl4 12/22 22:06 Pain Scale: Adult tl4 MDM: 12/22 22:32 Patient medically screened. marily 23:10 Differential diagnosis: abnormal EKG, acute myocardial infarction, acute pericarditis, marily anxiety, Cholelithiasis costochondritis, gastritis, gastroesophageal reflux disease (GERD), pancreatitis, peptic ulcer disease, pericarditis, pneumonia, pulmonary embolus, stable angina, thoracic aortic disection, unstable angina, appendicitis, bowel obstruction. HEART Score: History: Slightly Suspicious (0), ECG: Non specific repolarization disturbance / LBTB / PM (1), Age: < or = 45 years (0), Risk Factors: > or = 3 Risk factors for atherosclerotic disease (2), [Hypercholesterolemia] [Hypertension] [DM] [+ Family HX] [Obesity] Troponin: < or = 1 x Normal Limit (0). The patient was given aspirin in the Emergency Department. JERRY Risk Score: 1 - Three or more CAD risk factors, TOTAL SCORE = 1. Data reviewed: vital signs, nurses notes, lab test result(s), EKG, radiologic studies, CT scan, plain films. Consideration of Admission/Observation Escalation of care including admission/observation considered. I considered the following discharge prescriptions or medication management in the emergency department Medications were administered in the Emergency Department. See MAR. Independent interpretation of the following test(s) in the Emergency Department EKG: See my EKG interpretation above. 12/22 22:08 Order name: Basic Metabolic Panel; Complete Time: :02 marily 12/22 22:08 Order name: CBC with Diff; Complete Time: 23:01 [facility] 12/22 22:08 Order name: LFT's; Complete Time: 01:02 [facility] 12/22 22:08 Order name: Magnesium; Complete Time: 01:02 [facility] 12/22 22:08 Order name: NT PRO-BNP; Complete Time: 01:02 [facility] 12/22 22:08 Order name: PT-INR; Complete Time: 23:01 [facility] 12/22 22:08 Order name: Troponin HS; Complete Time: 01:02 [facility] 12/22 22:08 Order name: UDS; Complete Time: 01:02 [facility] 12/22 22:08 Order name: Urinalysis w/ reflexes; Complete Time: 01:02 [facility] 12/22 22:08 Order name: TSH; Complete Time: 01:02 [facility] 12/22 22:08 Order name: Flu; Complete Time: 23:06 [facility] 12/22 22:08 Order name: SARS RAPID; Complete Time: 23:01 [facility] 12/22 23:01 Order name: Lipase; Complete Time: 01:02 [facility] 12/23 01:03 Order name: Troponin HS: 1 AM PLEASE; Complete Time: 01:51 [facility] 12/22 22:08 Order name: XRAY Chest (1 view) 12/22 22:08 Order name: CT Chest For PE Angio [facility] 12/22 23:07 Order name: CT Abd/Pelvis - PO and IV Contrast 12/22 22:08 Order name: EKG; Complete Time: 22:08 [facility] 12/22 22:08 Order name: Cardiac monitoring; Complete Time: 22:26 [facility] 12/22 22:08 Order name: EKG - Nurse/Tech; Complete Time: 22:26 [facility] 12/22 22:08 Order name: IV Saline Lock; Complete Time: 22:26 [facility] 12/22 22:08 Order name: Labs collected and sent; Complete Time: 22:26 [facility] 12/22 22:08 Order name: O2 Per Protocol; Complete Time: 22:26 [facility] 12/22 22:08 Order name: O2 Sat Monitoring; Complete Time: 22:26 [facility] EC:08 Rate is 108 beats/min. Rhythm is regular. QRS [place] is Normal. IA interval is normal. [facility] QRS interval is normal. QT interval is normal. No Q waves. T waves are Normal. No ST changes noted. Clinical impression: NSR w/ Non-specific ST/T Changes and No evidence of ischemia. Interpreted by me. Reviewed by me. Administered Medications: 22:30 Drug: NS 0.9% IV 1000 ml IV at 1 bolus Per protocol; 1000 mL bolus Route: IV; Rate: 1 ha1 bolus; Site: right antecubital; 12/23 00:49 Follow up: Response: No adverse reaction; IV Status: Completed infusion; IV Intake: ha1 1000ml 12/22 22:30 Drug: Aspirin PO Chewable Tablet 324 mg PO once; 81 mg tablets x 4 Route: PO; ha1 23:00 Follow up: Response: No adverse reaction ha1 22:30 Drug: Ondansetron IVP 4 mg IVP once; over 2 minutes Route: IVP; Site: right antecubital;ha1 23:00 Follow up: Response: No adverse reaction ha1 23:15 Drug: morphine IVP or IV 4 mg IVP once over 4 mins Route: IVP; Infused Over: 4 mins; ha1 Site: right antecubital; 23:50 Follow up: Response: No adverse reaction; Marked relief of symptoms; Pain is decreased; ha1 RASS: Alert and Calm (0) 23:15 Drug: NS 0.9% IV 1000 ml IV at 1 bolus Per protocol; 1000 mL bolus Route: IV; Rate: 1 ha1 bolus; Site: right antecubital; 12/23 02:34 Follow up: Response: No adverse reaction; IV Status: Completed infusion; IV Intake: ha1 1000ml 12/22 23:18 Drug: Pantoprazole IVP 40 mg IVP once Route: IVP; Site: right antecubital; ha1 12/23 00:00 Follow up: Response: No adverse reaction ha1 02:15 Drug: Potassium PO Effervescent Tablet 50 mEq PO once; dissolve in 4 ounces of water or ha1 juice Route: PO; 02:33 Follow up: Response: No adverse reaction ha1 02:33 Not Given (Physician Discretion): ns 0.9% with kcl20 meq/l 1000 ml IV at 125 ml/hr ha1 continuous Disposition Summary: 12/23/23 01:51 Discharge Ordered Notes: Location: Home marily Problem: new marily Symptoms: have improved marily Condition: Stable marily Diagnosis - Chest pain, unspecified marily - Epigastric abdominal tenderness marily - Vomiting marily - Hypokalemia marily Followup: marily - With: Private Physician - When: 2 - 3 days - Reason: Recheck today's complaints, Continuance of care, Re-evaluation by your physician Followup: marily - With: Saray Reyna MD - When: 2 - 3 days - Reason: Recheck today's complaints, Re-evaluation by your physician Discharge Instructions: - Discharge Summary Sheet marily - Abdominal Pain, Adult marily - Nonspecific Chest Pain, Adult marily - Potassium Content of Foods marily - Nonspecific Chest Pain, Adult, [id number] marily - Aspirin and Your Heart marily - Hypokalemia [facility] Forms: - Medication Reconciliation Form [facility] - Thank You Letter [facility] - Antibiotic Education marily - Prescription Opioid Use marily - Patient Portal Instructions [facility] - Leadership Thank You Letter [facility] Prescriptions: - ondansetron 4 mg Oral Tablet,disintegrating - take 1 tablet ORAL route every 6-8 hours for 5 days; 20 tablet; Refills: 0, [facility] Product Selection Permitted - Protonix 40 mg Oral Tablet - take 1 tablet ORAL route once daily; 30 tablet; Refills: 0, Product Selection [facility] Permitted - promethazine 25 mg Oral tablet - take 1 tablet ORAL route every 6 hours As needed; 20 tablet; Refills: 0, [facility] Product Selection Permitted - dicyclomine 20 mg Oral tablet - take 1 tablet ORAL route 4 times per day; 28 tablet; Refills: 0, Product [facility] Selection Permitted Signatures: Dispatcher [employer] EDRohan Pete MD MD cha Ayala, Heidy RN RN ha1 Greyson Nunez RN RN tl4 Corrections: (The following items were deleted from the chart) 12/22 23:12 23:01 Abdomen Pelvis W Con+CT.RAD.BRZ ordered. EDKY EDMS
[2023-12-23 02:54] VITALS: BP 131/91; TEMP 98.4; O2SAT 98
--- NOTE | 2023-12-23 17:24 | RAD REPORT ---
EXAM DESCRIPTION: CT - Chest For Pe Angio - 12/23/2023 4:40 am CLINICAL HISTORY: CHEST PAIN COMPARISON: None. TECHNIQUE: CT CHEST ANGIOGRAPHY WITH IV CONTRAST on 12/22/2023 10:08 PM STAFFING ASSOCIATE. MIPS reconstructions wer e generated. This exam was performed according to our departmental dose-optimization program, which includes autom ated exposure control, adjustment of the mA and/or kV according to patient size and/or use of iterati ve reconstruction technique. MIP images were generated. FINDINGS: Thoracic aorta is normal in course and caliber without aneurysm or dissection. Pulmonary a rteries are adequately opacified without acute or chronic filling defects. The heart is normal in size. There is no pericardial effusion. Intrathoracic lymph nodes are not enla rged. There is no pleural effusion, pleural thickening or pneumothorax. Central airways are patent. Lungs a re clear with no consolidation, mass or interstitial lung disease. In the upper abdomen, there are postoperative changes in stomach. There are no acute osseous findin gs. No suspicious bony lesions. IMPRESSION: No aortic dissection or aneurysm. No pulmonary embolus. No pneumonia. Electronically signed by: Fidel Trevino MD 12/23/2023 01:20 AM STAFFING ASSOCIATE Due to temporary technical issues with the PACS/Fluency reporting system, reports are being signed by the in house radiologists without review as a courtesy to insure prompt reporting. The interpreting radiologist is fully responsible for the content of the report.
--- NOTE | 2023-12-23 18:48 | RAD REPORT ---
EXAM DESCRIPTION: RAD - Chest Single View - 12/22/2023 11:28 pm CLINICAL HISTORY: The patient is 38 years old and is Male; CHEST PAIN TECHNIQUE: Frontal view of the chest. COMPARISON: No relevant prior studies available. FINDINGS: Lungs: Unremarkable. No consolidation. Pleural space: Unremarkable. No pneumothorax. Heart: Unremarkable. Mediastinum: Unremarkable. Normal mediastinal contour. Bones/joints: No acute findings. IMPRESSION: No acute findings in the chest. Electronically signed by: Ashvin Gill MD 12/23/2023 12:20 AM EMOTIONAL SUPPORT TEACHER Due to temporary technical issues with the PACS/Fluency reporting system, reports are being signed by the in house radiologists without review as a courtesy to insure prompt reporting. The interpreting radiologist is fully responsible for the content of the report.
--- NOTE | 2023-12-23 19:03 | RAD REPORT ---
EXAM DESCRIPTION: CT - Abdomen Pelvis W Contrast - 12/23/2023 4:40 am CLINICAL HISTORY: The patient is 38 years old and is Male; ABD PAIN TECHNIQUE: Axial computed tomography images of the abdomen and pelvis with intravenous contrast. S agittal and coronal reformatted images were created and reviewed. This CT exam was performed using one or more of the following dose reduction techniques: automated exposure control, adjustment of t he mA and/or kV according to patient size, and/or use of iterative reconstruction technique. COMPARISON: No relevant prior studies available. FINDINGS: Lung bases: Unremarkable. No mass. No consolidation. ABDOMEN: Liver: Hepatomegaly. Gallbladder and bile ducts: Gallbladder is surgically absent. No ductal dilation. Pancreas: Unremarkable. No mass. No ductal dilation. Spleen: Unremarkable. No splenomegaly. Adrenals: Unremarkable. No mass. Kidneys and ureters: Unremarkable. No solid mass. No hydronephrosis. Stomach and bowel: Prior gastric bypass surgery. There are a few mildly distended loops of small bowel. No mucosal thickening. PELVIS: Appendix: No findings to suggest acute appendicitis. Bladder: Unremarkable. Reproductive: Unremarkable as visualized. ABDOMEN and PELVIS: Intraperitoneal space: Unremarkable. No free air. No significant fluid collection. Bones/joints: No acute fracture. No dislocation. Soft tissues: Unremarkable. Vasculature: Unremarkable. No abdominal aortic aneurysm. Lymph nodes: Unremarkable. No enlarged lymph nodes. IMPRESSION: No acute finding in the abdomen/pelvis. Electronically signed by: Ashvin Gill MD 12/23/2023 01:27 AM WEATHERIZATION INSTALLER Due to temporary technical issues with the PACS/Fluency reporting system, reports are being signed by the in house radiologists without review as a courtesy to insure prompt reporting. The interpreting radiologist is fully responsible for the content of the report.
--- NOTE | 2023-12-25 14:35 | EKG ---
Test Date: 2023-12-22 Test Time: 22:04:50 Trophy Assembler: TL MEASUREMENT RESULTS: Intervals: Rate: 108 MN: 138 QRSD: 74 QT: 330 QTc: 442 [place]: P: 46 MN: 138 QRS: 55 T: -12 INTERPRETIVE STATEMENTS: Sinus tachycardia Abnormal QRS-T angle, consider primary T wave abnormality Abnormal ECG Compared to ECG 09/29/2023 18:20:35 T-wave abnormality now present Electronically Signed On 12-25-23 14:29:03 DELINQUENT TAX COLLECTOR ASSISTANT by Kannan Perez
== END ==
LOC: ER 21:52
DX: R07.89 Other chest pain (principal); R10.816 Epigastric abdominal tenderness; R11.10 Vomiting, unspecified; E87.6 Hypokalemia; Z11.52 Encounter for screening for COVID-19; E11.9 Type 2 diabetes mellitus without complications; I10 Essential (primary) hypertension
CPT/HCPCS: 85025; 80048; 36415; 83735; 85610; 80076; 84443; 81003; 84484; 83690; 83880; 80307; 87804 ×2; 71275; 74177; 71045; 87811; Q9967; C9113; J2405; J7030 ×2; 93005

== ENCOUNTER 2024-09-10 17:59 | Emergency (ER) | payer OTHER ==
--- NOTE | 2024-09-10 18:56 | RAD REPORT ---
EXAMINATION: ONE VIEW CHEST XR CLINICAL INDICATION: PALPITATIONS TECHNIQUE: Frontal chest projection is submitted. Examination is limited by patient positioning and t echnique. COMPARISON: 12/22/2023 FINDINGS: The lungs are well inflated and clear. The heart is normal in size. No displaced fractures identified . IMPRESSION: No acute intrathoracic abnormalities.
[2024-09-10] MEDS ORDERED: ONDANSETRON 4 MG/2 ML VIAL ONE (19:25)
[2024-09-10] MEDS ORDERED: NA CHLORIDE 0.9% 1,000 ML ONE (19:25)
[2024-09-10 19:36] LABS: Absolute Basophils 0.1 K/uL (0-0.5); Absolute Eosinophils 0.1 K/uL (0-0.5); Absolute Lymphocytes (CBC) 3.8 K/uL (0.7-4.9); Absolute Monocytes 0.7 K/uL (0.1-1.3); Absolute Neutrophil 5.3 K/uL (1.8-8.0); Basophils % 0.6 % (0-1.3); Eosinophils % 0.9 % (0-4.4); Hematocrit 38.8 % (39.6-49.0); Hemoglobin 12.3 g/dL (13.6-17.9); Lymphocytes % 38.3 % (15.3-44.8); MCH 22.1 pg (27.0-35.0); MCHC 31.8 g/dL (32.0-36.0); MCV 69.4 fL (80-100); MPV 7.6 fL (7.6-11.3); Neutrophils % 53.2 % (41.7-73.7); Nucleated Red Blood Cells % 0.2 % (0-0); Platelets 331 thou/uL (152-406); RBC Red Blood Cell Count 5.58 M/uL (4.33-5.43); Red Cell Distribution Width 16.9 % (12.1-15.2)
[2024-09-10 19:39] LABS: Blood Morphology Comment NOTED (NOT SEEN); Microcytosis 1+; Platelet Estimate ADEQ; White Blood Cell Scan OK (OK)
[2024-09-10 20:00] LABS: Albumin 3.8 g/dL (3.4-5.0); Albumin/Globulin Ratio 0.9 (1.1-1.8); Anion Gap 8.4 mEq/L (5.0-15.0); Bilirubin Direct 0.2 mg/dL (0-0.2); Bilirubin Indirect, Calculated 1.1 mg/dL (0.2-0.8); Bilirubin Total 1.3 mg/dL (0.2-1.0); Globulin 4.1 g/dL (2.3-3.5); Potassium 3.4 mEq/L (3.5-5.1); Protein, Total 7.9 g/dL (6.4-8.2); Troponin High Sensitivity 3.4 pg/mL (<58.9)
[2024-09-10 20:13] LABS: SARS-CoV-2 Antigen CONTROL BLUE LINE VIS/BG OK; SARS-CoV-2 Antigen Rapid Res Negative (Negative)
--- NOTE | 2024-09-10 21:08 | EDPHYS ---
Physician Documentation [facility] Name: Marc Giron Age: 38 yrs Sex: Male : 1985 Arrival Date: 09/10/2024 Time: 17:59 Bed 14 Private MD: ED Physician Pee Carroll HPI: 09/10 18:30 This 38 yrs old Male presents to ER via Unassigned with complaints of Doesn't Feel kb Right, Decreased Appetite, Palpitations, Nausea, Headache. 18:30 Pt is a 38 year old male who presents for malaise, headache, nausea, chills, decreased kb appetite, palpitations, diarrhea that started yesterday. Denies cough, congestion, sore throat. No aggravating or alleviating factors. . Historical: - Allergies: 18:35 No Known Allergies; ph - PMHx: 18:35 Depression; Diabetes - NIDDM; Hyperlipidemia; Hypertension; insomnia; ph - PSHx: 18:35 Gastric Bypass; R elbow; carpal tunnel; Cholecystectomy; Vasectomy; ph - Immunization history:: Adult Immunizations unknown. - Infectious Disease History:: Denies. - Social history:: Smoking status: unknown. ROS: 18:30 Constitutional: As per HPI kb Exam: 18:40 Constitutional: This is a well developed, well nourished patient who is awake, alert, kb and in no acute distress. Head/Face: Normocephalic, atraumatic. ENT: Moist Mucous membranes Cardiovascular: Regular rate Respiratory: Respirations even and unlabored. No increased work of breathing. Talking in full sentences Abdomen/GI: Soft, non-tender. No distention Skin: Warm, dry with normal turgor. Normal color. MS/ Extremity: Pulses equal, no cyanosis. Neurovascular intact. Full, normal range of motion. Neuro: Awake and alert, GCS 15, oriented to person, place, time, and situation. 23:29 ECG was reviewed by the Attending Physician. kb Vital Signs: 18:38 BP 130 / 104; Pulse 93; Resp 18; Temp 97.4; Pulse Ox 98% on R/A; Weight 97.52 kg; ph Height 5 ft. 10 in. ; 19:10 BP 131 / 93; Pulse 77; Resp 17; Temp 98.5(O); Pulse Ox 98% on R/A; rg5 20:00 BP 115 / 75; Pulse 78; Resp 17; Pulse Ox 97% on R/A; rg5 21:10 BP 117 / 79; Pulse 77; Resp 16; Temp 98(O); Pulse Ox 99% on R/A; Pain 0/10; rg5 18:38 Body Mass Index 30.85 (97.52 kg, 177.8 cm) ph 21:10 Pain Scale: Adult rg5 MDM: 18:13 Medical Screening Exam initiated kb 18:32 Data reviewed: vital signs, nurses notes. kb 21:08 Differential diagnosis: flu, covid, uri, gastroenteritis, viral illness. I considered kb the following discharge prescriptions or medication management in the emergency department I discussed and recommended Over The Counter medications, Antibiotics: At this time antibiotics are not recommended, Antivirals: At this time, antivirals are not recommended. Historians other than the Patient: Spouse/Significant Other: . Counseling: I had a detailed discussion with the patient and/or guardian regarding the historical points, exam findings, and any diagnostic results supporting the discharge/admit diagnosis, lab results, radiology results, the need for outpatient follow up, a family practitioner, to return to the emergency department if symptoms worsen or persist or if there are any questions or concerns that arise at home. 11 18:33 Order name: Basic Metabolic Panel; Complete Time: 20:03 kb 09/10 18:33 Order name: CBC with Diff; Complete Time: 19:43 kb 09/10 18:33 Order name: LFT's; Complete Time: 20:03 kb 09/10 18:33 Order name: Troponin HS; Complete Time: 20:03 kb 09/10 18:33 Order name: Flu; Complete Time: 20:53 kb 09/10 18:33 Order name: SARS-COV-2 Antigen Rapid; Complete Time: 20:53 kb 09/10 18:34 Order name: Strep; Complete Time: 20:53 kb 09/10 19:39 Order name: CBC Smear Scan; Complete Time: 19:43 EDMS 09/10 20:17 Order name: Throat Culture EDMS 09/10 18:33 Order name: XRAY Chest (1 view); Complete Time: 18:57 kb 09/10 18:33 Order name: EKG; Complete Time: 18:34 kb 11/12 18:33 Order name: Cardiac monitoring; Complete Time: 19:22 kb 09/10 18:33 Order name: EKG - Nurse/Tech; Complete Time: 20:10 kb 09/10 18:33 Order name: IV Saline Lock; Complete Time: 19:22 kb 09/10 18:33 Order name: Labs collected and sent; Complete Time: 19:22 kb 09/10 18:33 Order name: O2 Per Protocol; Complete Time: 19:22 kb 09/10 18:33 Order name: O2 Sat Monitoring; Complete Time: 19:22 kb EC:29 Rate is 74 beats/min. Rhythm is regular. QRS [place] is Normal. [place] interval is normal at kb 134 msec. QRS interval is normal at 82 msec. QT interval is normal at 450 msec. Administered Medications: 19:34 Drug: NS 0.9% IV 1000 ml IV at 1000 ml once; to be given as a bolus over 60 minutes rg5 Route: IV; Rate: 1000 ml; Site: right antecubital; 21:02 Follow up: IV Status: Completed infusion; IV Intake: 1000ml rg5 19:34 Drug: Ondansetron IVP 4 mg IVP once; over 2 minutes Route: IVP; Site: right antecubital;rg5 20:09 Follow up: Response: No adverse reaction rg5 Disposition: 20:49 I was immediately available on-site in the Emergency Department for consultation in the ms3 care of the patient. Disposition Summary: 09/10/24 21:08 Discharge Ordered Notes: Location: Home kb Condition: Stable kb Diagnosis - Viral infection, unspecified kb Followup: kb - With: Emergency Department - When: As needed - Reason: Worsening of condition Followup: kb - With: Private Physician - When: 2 - 3 days - Reason: Recheck today's complaints, Continuance of care, Re-evaluation by your physician Discharge Instructions: - Discharge Summary Sheet kb - Viral Illness, Adult kb Forms: - Medication Reconciliation Form kb - Antibiotic Education kb - Prescription Opioid Use kb - Patient Portal Instructions kb - Leadership Thank You Letter kb Prescriptions: - Zofran 4 mg Oral tablet - take 1 tablet ORAL route every 6 hours As needed; 12 tablet; Refills: 0, kb Product Selection Permitted Signatures: Dispatcher [employer] Kathy Boudreaux, SAVANNA-C SAVANNA-Kelsi Velasquez RN RN ph Pee Carroll, DO MASCORRO ms3 Chin Funes, RN RN rg5
--- NOTE | 2024-09-10 21:08 | ER ---
Nurse's Notes [facility] Name: Marc Giron Age: 38 yrs Sex: Male : 1985 Arrival Date: 09/10/2024 Time: 17:59 Bed 14 Private MD: Diagnosis: Viral infection, unspecified Presentation: 09/10 18:36 Chief complaint: Patient states: Headache, fatigue, nausea, chills, palpitations, ph diarrhea since yesterday. 18:38 Coronavirus screen: Vaccine status: Patient reports receiving the 2nd dose of the covid ph vaccine. Ebola Screen: No symptoms or risks identified at this time. Initial Sepsis Screen: Does the patient meet any 2 criteria? No. Patient's initial sepsis screen is negative. Does the patient have a suspected source of infection? No. Patient's initial sepsis screen is negative. Risk Assessment: Do you want to hurt yourself or someone else? Patient reports no desire to harm self or others. Onset of symptoms was September 10, 2024. 18:38 Method Of Arrival: Ambulatory 18:38 Acuity: MARGARITA 3 ph Historical: - Allergies: 18:35 No Known Allergies; ph - PMHx: 18:35 Depression; Diabetes - NIDDM; Hyperlipidemia; Hypertension; insomnia; ph - PSHx: 18:35 Gastric Bypass; R elbow; carpal tunnel; Cholecystectomy; Vasectomy; ph - Immunization history:: Adult Immunizations unknown. - Infectious Disease History:: Denies. - Social history:: Smoking status: unknown. Screenin:10 [facility] ED Fall Risk Assessment (Adult) History of falling in the last 3 months, rg5 including since admission No falls in past 3 months (0 pts) Confusion or Disorientation No (0 pts) Intoxicated or Sedated No (0 pts) Impaired Gait No (0 pts) Mobility Assist Device Used No (0 pt) Altered Elimination No (0 pt) Score/Fall Risk Level 0 - 2 = Low Risk Oriented to surroundings, Maintained a safe environment, Hourly rounding (assess needs \T\ fall precautionary measures) done. Abuse screen: Denies threats or abuse. Nutritional screening: No deficits noted. Tuberculosis screening: No symptoms or risk factors identified. Assessment: 19:10 General: Appears in no apparent distress. comfortable, Behavior is calm, cooperative, rg5 appropriate for age. 19:10 Pain: Denies pain. Neuro: Level of Consciousness is awake, alert, obeys commands, rg5 Oriented to person, place, time. Cardiovascular: Heart tones S1 S2 Patient's skin is warm and dry. Rhythm is sinus rhythm. Respiratory: Airway is patent Trachea midline Respiratory effort is even, unlabored, Respiratory pattern is regular. GI: Abdomen is round non-distended, Bowel sounds present X 4 quads. Abd is soft and non tender Reports diarrhea, nausea. : No signs and/or symptoms were reported regarding the genitourinary system. EENT: No deficits noted. Derm: No deficits noted. Musculoskeletal: Circulation, motion, and sensation intact. Range of motion: intact in all extremities. 20:00 Reassessment: Patient and/or family updated on plan of care and expected duration. Pain rg5 level reassessed. Patient is alert, oriented x 3, equal unlabored respirations, skin warm/dry/pink. Patient states feeling better. 21:25 Reassessment: Patient and/or family updated on plan of care and expected duration. Pain rg5 level reassessed. Patient is alert, oriented x 3, equal unlabored respirations, skin warm/dry/pink. Patient states symptoms have improved. Vital Signs: 18:38 BP 130 / 104; Pulse 93; Resp 18; Temp 97.4; Pulse Ox 98% on R/A; Weight 97.52 kg; ph Height 5 ft. 10 in. ; 19:10 BP 131 / 93; Pulse 77; Resp 17; Temp 98.5(O); Pulse Ox 98% on R/A; rg5 20:00 BP 115 / 75; Pulse 78; Resp 17; Pulse Ox 97% on R/A; rg5 21:10 BP 117 / 79; Pulse 77; Resp 16; Temp 98(O); Pulse Ox 99% on R/A; Pain 0/10; rg5 18:38 Body Mass Index 30.85 (97.52 kg, 177.8 cm) ph 21:10 Pain Scale: Adult rg5 ED Course: 18:03 Patient arrived in ED. mg5 18:11 [facility]C [facility] kb 18:11 Pee Carroll DO is Attending Physician. kb 18:38 Arm band placed on Patient placed in waiting room, Patient notified of wait time. ph 18:39 Triage completed. ph 18:48 XRAY Chest (1 view) In Process Unspecified. EDMS 19:09 Chin Funes, RN is Primary Nurse. rg5 19:10 Patient has correct armband on for positive identification. Bed in low position. Call rg5 light in reach. Side rails up X 1. Door closed. Noise minimized. Warm blanket given. 19:10 No provider procedures requiring assistance completed. Inserted saline lock: 20 gauge rg5 in right forearm, using aseptic technique. Blood collected. Flushed with 10 mL NS. 21:25 Provided Education on: post er care. rg5 21:25 IV discontinued, bleeding controlled, No redness/swelling at site. Pressure dressing rg5 applied. Administered Medications: 19:34 Drug: NS 0.9% IV 1000 ml IV at 1000 ml once; to be given as a bolus over 60 minutes rg5 Route: IV; Rate: 1000 ml; Site: right antecubital; 21:02 Follow up: IV Status: Completed infusion; IV Intake: 1000ml rg5 19:34 Drug: Ondansetron IVP 4 mg IVP once; over 2 minutes Route: IVP; Site: right antecubital;rg5 20:09 Follow up: Response: No adverse reaction rg5 Medication: 19:10 VIS not applicable for this client. rg5 Intake: 21:02 IV: 1000ml; Total: 1000ml. rg5 Outcome: 21:08 Discharge ordered by MD. munoz 21:25 Discharged to home ambulatory, rg5 21:25 Condition: stable 21:25 Discharge instructions given to patient, Instructed on discharge instructions, Demonstrated understanding of instructions, follow-up care, medications, Prescriptions given X 1, 21:39 Patient left the ED. rg5 Signatures: Dispatcher [employer] EDAK Kathy Keen, RESEARCH STAFF MEMBER-C RESEARCH STAFF MEMBER-Kelsi Velasquez, RN RN Terrell Mile mg5 Chin Funes, RN RN rg5
[2024-09-10 21:50] VITALS: BP 117/79; TEMP 98; O2SAT 99
== END 2024-09-10 21:39 | disposition home or self-care (01) ==
LOC: ER 17:59
DX: B34.9 Viral infection, unspecified (principal); Z11.52 Encounter for screening for COVID-19; I10 Essential (primary) hypertension; E11.9 Type 2 diabetes mellitus without complications
CPT/HCPCS: 87070; 85025; 80048; 36415; 80076; 87081; 84484; 87804 ×2; 71045; 87811; J2405; J7030; 93005

== ENCOUNTER 2024-12-26 07:32 | Emergency (ER) | payer OTHER ==
[2024-12-26] MEDS ORDERED: HYDROCODONE/APAP 5/325 MG TAB ONE ×2 (08:03→08:09)
--- NOTE | 2024-12-26 09:27 | RAD REPORT ---
EXAM: CT brain without contrast HISTORY: fall COMPARISON: None TECHNIQUE: Multiple contiguous axial images were obtained and a CT of the brain without contrast. Sag ittal and coronal reformats were performed. FINDINGS: No evidence of hydrocephalus, intracranial hemorrhage, or extra-axial fluid collection. The brain is normal in morphology. The calvarium is intact. The visualized paranasal sinuses show patchy inflammatory mucosal thickening with near complete opacification of the ethmoidal and right sphenoid air cells. Air-fluid levels within the sphenoid sinuses. Mastoid air cells are essentially clear. IMPRESSION: No evidence of acute intracranial abnormality. Inflammatory paranasal sinus mucosal thickening as above. EXAM: CT of the cervical spine without contrast HISTORY: fall COMPARISON: None TECHNIQUE: Multiple contiguous axial images were obtained in a CT of the cervical spine without contr ast. Sagittal and coronal reformats were performed. FINDINGS: The vertebral bodies demonstrate normal height and alignment. No evidence of acute fracture or subluxation.. No degenerative changes are present. No prevertebral soft tissue swelling is seen. The posterior facets are well aligned. Normal alignment of the skull base with the cervical spine is seen. The lung apices are unremarkable. IMPRESSION: No evidence of acute osseous abnormality of the cervical spine. EXAM: CT CHEST, ABDOMEN AND PELVIS WITHOUT CONTRAST CLINICAL INDICATION: Male, 39 years old. [facility] fall Bed Name: 17 TECHNIQUE: CT chest, abdomen and pelvis was performed, without IV contrast, as per department protoco l. Axial, sagittal and coronal reconstructions were obtained. One or more of the following dose reduction techniques were used: Automated exposure control, adjustment of the mA and/or kV according to the patient size, and/or iterative reconstruction. Unless otherwise specified, incidental findings do not require dedicated imaging follow-up. COMPARISON: No prior exam. FINDINGS: The lack of intravenous contrast limits the sensitivity of this exam for evaluation of solid visceral organs, vascular structures, and retroperitoneum. Chest: LOWER NECK/CHEST WALL: Visualized thyroid gland and soft tissues are normal. LUNGS AND AIRWAYS: Airways are clear. No evidence of airspace or interstitial process. No nodules. PLEURA: No pleural effusion. No pneumothorax. Hemidiaphragms are normally positioned. MEDIASTINUM AND LYMPH NODES: No mediastinal mass or fluid collection. Normal size mediastinal, hilar, and axillary lymph nodes. THORACIC AORTA: Normal caliber and configuration. PULMONARY ARTERIES: Normal caliber. HEART: Unremarkable. Abdomen/Pelvis LIVER: Normal in size and contour. No focal lesion. GALLBLADDER/BILE DUCTS: Status post cholecystectomy. No biliary ductal dilatation. PANCREAS: No mass, ductal dilation, or nazia-pancreatic fluid. SPLEEN: Normal size. No focal lesion. ADRENALS: Normal; no mass. KIDNEYS AND URETERS: Normal size and contour. No hydronephrosis. GASTROINTESTINAL TRACT: Sequelae of Angela-en-Y gastric bypass. Stomach is non-dilated. Small bowel has normal course and caliber. No colonic wall thickening or pericolonic inflammatory changes. PERITONEUM: No free fluid. LYMPH NODES: No lymphadenopathy. ABDOMINAL AORTA AND OTHER VESSELS: Normal caliber aorta and IVC. URINARY BLADDER: Normal contour. REPRODUCTIVE ORGANS: No pathologic process. MUSCULOSKELETAL: No acute or suspicious osseous abnormality. ADDITIONAL FINDINGS: None IMPRESSION: No evidence of traumatic or other acute abnormalities in the chest, abdomen, or pelvis.
--- NOTE | 2024-12-26 09:34 | EDPHYS ---
Physician Documentation [facility] Name: Marc Giron Age: 39 yrs Sex: Male : 1985 Arrival Date: 12/26/2024 Time: 07:32 Bed 17 Private MD: ED Physician Brigitte Nolen HPI: 12/26 07:59 This 39 yrs old Male presents to ER via Ambulatory with complaints of Fall Injury. sp3 07:59 39-year-old male with a history of diabetes, hyperlipidemia, hypertension now presents sp3 to the ED with chief complaint of falling off of a fence onto his left side and now with right-sided headache, neck pain, chest pain and bilateral trunk pain. He denies loss of consciousness but does state that he struck his head on the concrete. He denies any vomiting, diarrhea, changes in vision, neurological deficits, syncope, bleeding or any other signs or symptoms on ROS at this time.. Historical: - Allergies: 07:52 No Known Allergies; ap3 - Home Meds: 07:52 omeprazole 40 mg oral capsule,delayed release (e.c.) [Active]; ap3 - PMHx: 07:52 Depression; Diabetes - NIDDM; Hyperlipidemia; Hypertension; insomnia; ap3 - Immunization history:: Client reports having NOT received the Covid vaccine. Last tetanus immunization: unknown. - Infectious Disease History:: Denies. - Social history:: Smoking status: Patient reports use of chewing tobacco. Patient uses alcohol, on a daily basis. claims drinking about a 6 pack/day. ROS: 08:02 Constitutional: Negative for fever, chills, and weight loss, Eyes: Negative for injury, sp3 pain, redness, and discharge, ENT: Negative for injury, pain, and discharge, Cardiovascular: Negative for chest pain, palpitations, and edema, Respiratory: Negative for shortness of breath, cough, wheezing, and pleuritic chest pain, Skin: Negative for injury, rash, and discoloration, Neuro: Negative for headache, weakness, numbness, tingling, and seizure, Psych: Negative for depression, anxiety, suicide ideation, homicidal ideation, and hallucinations, Allergy/Immunology: Negative for hives, rash, and allergies, Endocrine: Negative for neck swelling, polydipsia, polyuria, polyphagia, and marked weight changes, 08:02 All other systems are negative, Exam: 08:02 Constitutional: This is a well developed, well nourished patient who is awake, alert, sp3 and in no acute distress. Head/Face: Normocephalic, atraumatic. Eyes: Pupils equal round and reactive to light, extra-ocular motions intact. Lids and lashes normal. Conjunctiva and sclera are non-icteric and not injected. Cornea within normal limits. Periorbital areas with no swelling, redness, or edema. ENT: Nares patent. No nasal discharge, no septal abnormalities noted. External auditory canals are clear. Oropharynx with no redness, swelling, or masses, exudates, or evidence of obstruction, uvula midline. Mucous membranes moist. Neck: Trachea midline, no thyromegaly or masses palpated, and no cervical lymphadenopathy. Supple, full range of motion without nuchal rigidity, or vertebral point tenderness. No Meningismus. Cardiovascular: Regular rate and rhythm with a normal S1 and S2. No gallops, murmurs, or rubs. Normal PMI, no JVD. No pulse deficits. Respiratory: Lungs have equal breath sounds bilaterally, clear to auscultation and percussion. No rales, rhonchi or wheezes noted. No increased work of breathing, no retractions or nasal flaring. Skin: Warm, dry with normal turgor. Normal color with no rashes, no lesions, and no evidence of cellulitis. Neuro: Awake and alert, GCS 15, oriented to person, place, time, and situation. Cranial nerves II-XII grossly intact. Motor strength 5/5 in all extremities. Sensory grossly intact. Cerebellar exam normal. Normal gait. Psych: Awake, alert, with orientation to person, place and time. Behavior, mood, and affect are within normal limits. 08:02 Chest/axilla: Patient with diffuse pain to palpation musculoskeletal areas including right parietal region of the head, trapezius and SCM musculature of the neck on the right side, bilateral shoulders, bilateral thorax/chest without any signs of crepitus or subcu air or abnormal lung sounds, and right flank on palpation. Abdomen is soft and benign. No peritoneal signs noted. Vital signs are normal.. Vital Signs: 07:50 BP 144 / 94; Pulse 93; Resp 18; Temp 98.3(O); Pulse Ox 99% on R/A; Weight 102.06 kg; ap3 Pain 7/10; 07:50 Pain Scale: Adult ap3 [place] Coma Score: 07:54 Eye Response: spontaneous(4). Motor Response: obeys commands(6). Verbal Response: ap3 oriented(5). Total: 15. Trauma Score (Adult): 07:54 Eye Response: spontaneous(1); Verbal Response: oriented(1); Motor Response: obeys ap3 commands(2); Systolic BP: > 89 mm Hg(4); Respiratory Rate: 10 to 29 per min(4); [place] Score: 15; Trauma Score: 12 MDM: 07:36 Medical Screening Exam initiated sp3 08:03 Data reviewed: vital signs, nurses notes, radiologic studies. ED course: 39-year-old sp3 male with mechanical fall off of a fence landing onto concrete. Diffuse muscular skeletal symptoms. Possible head injury. Will obtain CT scan traumagram head, C-spine, chest abdomen and pelvis. [place] p.o. for pain control. If workup negative we will safely discharge patient home.. 09:33 ED course: Workup negative. We will safely discharge patient home on diclofenac.. sp3 12/26 07:58 Order name: CT Traumagram (Head C Spine CAP wo con); Complete Time: 09:32 sp3 12/26 07:36 Order name: Vital Signs; Complete Time: 07:56 sp3 Administered Medications: 08:21 Drug: [place] PO 5 mg-325 mg 2 tabs PO once Route: PO; ap3 10:19 Follow up: Response: No adverse reaction ap3 Disposition Summary: 12/26/24 09:33 Discharge Ordered Notes: Location: Home sp3 Condition: Stable sp3 Diagnosis - Mechanical fall, multiple contusions sp3 Followup: sp3 - With: Private Physician - When: Upon discharge from the Emergency Department - Reason: Continuance of care Discharge Instructions: - Discharge Summary Sheet sp3 - Chest Contusion, Adult sp3 Forms: - Medication Reconciliation Form sp3 - Antibiotic Education sp3 - Prescription Opioid Use sp3 - Patient Portal Instructions sp3 - Leadership Thank You Letter sp3 Prescriptions: - Diclofenac Sodium 75 mg Oral Tablet Sustained Release - take 1 tablet ORAL route 2 times per day; 30 tablet; Refills: 0, Product sp3 Selection Permitted Signatures: Dispatcher [employer] Debbie Lin RN RN ap3 Brigitte Nolen MD MD sp3 Corrections: (The following items were deleted from the chart) 07:58 07:58 Head C Spine Cap Wo [id number].[email or web address] ordered. EDMS EDMS
--- NOTE | 2024-12-26 09:34 | ER ---
Nurse's Notes [facility] Name: Marc Giron Age: 39 yrs Sex: Male : 1985 Arrival Date: 12/26/2024 Time: 07:32 Bed 17 Private MD: Diagnosis: Mechanical fall, multiple contusions Presentation: 12/26 07:50 Chief complaint: Patient states: he jumped his gate yesterday, landing on his left ap3 side. patient is complaining of pain on his right shoulder, back, neck and arm pain that he currently rates as a 7 out of 10. patient states the pain is aggravated when he moves certain ways, coughs or sneezes. Patient denies any LOC during this fall, and states he has full control of bowel and urination. Coronavirus screen: At this time, the client does not indicate any symptoms associated with coronavirus-19. Ebola Screen: No symptoms or risks identified at this time. Initial Sepsis Screen: Does the patient meet any 2 criteria? HR > 90 bpm. Does the patient have a suspected source of infection? No. Patient's initial sepsis screen is negative. Risk Assessment: Do you want to hurt yourself or someone else? Patient reports no desire to harm self or others. Onset of symptoms was December 25, 2024. 07:50 Method Of Arrival: Ambulatory ap3 07:50 Acuity: MARGARITA 4 ap3 Triage Assessment: 07:53 General: Appears uncomfortable, Behavior is calm, cooperative, appropriate for age. ap3 Pain: Complains of pain in back, chest, right arm and neck Pain currently is 7 out of 10 on a pain scale. at worst was 10 out of 10 on a pain scale. Pain began gradually, Aggravated by increased activity, repositioning. Neuro: Level of Consciousness is awake, alert, obeys commands, Oriented to person, place, time, situation, Appropriate for age. Cardiovascular: Patient's skin is warm and dry. Respiratory: Airway is patent Respiratory effort is even, unlabored, Respiratory pattern is regular, symmetrical. Historical: - Allergies: 07:52 No Known Allergies; ap3 - Home Meds: 07:52 omeprazole 40 mg oral capsule,delayed release (e.c.) [Active]; ap3 - PMHx: 07:52 Depression; Diabetes - NIDDM; Hyperlipidemia; Hypertension; insomnia; ap3 - Immunization history:: Client reports having NOT received the Covid vaccine. Last tetanus immunization: unknown. - Infectious Disease History:: Denies. - Social history:: Smoking status: Patient reports use of chewing tobacco. Patient uses alcohol, on a daily basis. claims drinking about a 6 pack/day. Screenin:55 [facility] ED Fall Risk Assessment (Adult) History of falling in the last 3 months, ap3 including since admission Yes- single mechanical fall (1 pt) Confusion or Disorientation No (0 pts) Intoxicated or Sedated Impaired Gait No (0 pts) Mobility Assist Device Used No (0 pt) Altered Elimination No (0 pt) Score/Fall Risk Level 0 - 2 = Low Risk Oriented to surroundings, Maintained a safe environment, Educated pt \T\ family on fall prevention, incl call for assistance when getting out of bed, Assessed \T\ reinforced patient's understanding of fall precautions, Hourly rounding (assess needs \T\ fall precautionary measures) done, Used ambulatory aids as needed (educated on \T\ assisted with). Abuse screen: Denies threats or abuse. Nutritional screening: No deficits noted. Tuberculosis screening: No symptoms or risk factors identified. Primary Survey: 07:54 NO uncontrolled hemorrhage observed. A: The client is awake and alert. The airway is ap3 patent. Breathing/Chest: Spontaneous respiratory effort, equal unlabored respirations, breath sounds clear bilaterally, regular pattern, symmetrical chest rise and fall. Circulation: No external hemorrhage present. Regular and strong central pulse, skin warm/dry/normal color. Disability Client is alert. Exposure/Environment: There is no evidence of uncontrolled external bleeding. Vital Signs: 07:50 BP 144 / 94; Pulse 93; Resp 18; Temp 98.3(O); Pulse Ox 99% on R/A; Weight 102.06 kg; ap3 Pain 7/10; 07:50 Pain Scale: Adult ap3 [place] Score: 07:54 Eye Response: spontaneous(4). Motor Response: obeys commands(6). Verbal Response: ap3 oriented(5). Total: 15. Trauma Score (Adult): 07:54 Eye Response: spontaneous(1); Verbal Response: oriented(1); Motor Response: obeys ap3 commands(2); Systolic BP: > 89 mm Hg(4); Respiratory Rate: 10 to 29 per min(4); [place] Score: 15; Trauma Score: 12 ED Course: 07:34 Patient arrived in ED. im 07:36 Brigitte Nolen MD is Attending Physician. sp3 07:52 Triage completed. ap3 07:55 Patient has correct armband on for positive identification. Bed in low position. Call ap3 light in reach. Side rails up X 1. Adult w/ patient. Client placed on continuous cardiac and pulse oximetry monitoring. NIBP monitoring applied. bus monitor on. Pulse ox on. NIBP on. 07:55 Arm band placed on right wrist. ap3 08:17 CT Traumagram (Head C Spine CAP wo con) In Process Unspecified. EDMS 09:33 Brigitte Nolen MD is Referral Physician. sp3 10:18 No provider procedures requiring assistance completed. Patient did not have IV access ap3 during this emergency room visit. 10:19 Provided Education on: discharge instructions . ap3 Administered Medications: 08:21 Drug: [place] PO 5 mg-325 mg 2 tabs PO once Route: PO; ap3 10:19 Follow up: Response: No adverse reaction ap3 Medication: 10:19 VIS not applicable for this client. ap3 Outcome: 09:33 Discharge ordered by MD. sp3 10:18 Discharged to home ambulatory, ap3 10:18 Condition: good 10:18 Discharge instructions given to patient, Instructed on discharge instructions, follow up and referral plans. medication usage, Demonstrated understanding of instructions, follow-up care, medications, Prescriptions given X 1, 10:19 Patient left the ED. ap3 Signatures: Dispatcher [employer] EDMS Debbie Lin RN RN ap3 Brigitte Nolen MD MD sp3 Oly Valentin im Corrections: (The following items were deleted from the chart) 07:54 07:50 Chief complaint: Patient states: he jumped his gate yesterday, landing on his ap3 left side. patient is complaining of pain on his right shoulder, back, neck and arm pain that he currently rates as a 7 out of 10. patient states the pain is aggravated when he moves certain ways, coughs or sneezes. ap3 07:54 07:50 Chief complaint: Patient states: he jumped his gate yesterday, landing on his ap3 left side. patient is complaining of pain on his right shoulder, back, neck and arm pain that he currently rates as a 7 out of 10. patient states the pain is aggravated when he moves certain ways, coughs or sneezes. Patient denies any LOC during this fall ap3
[2024-12-26 10:24] VITALS: BP 144/94; TEMP 98.3; O2SAT 99
== END 2024-12-26 10:19 | disposition home or self-care (01) ==
LOC: ER 07:32
DX: T07.XXXA Unspecified multiple injuries, initial encounter (principal); W18.30XA Fall on same level, unspecified, initial encounter; F17.220 Nicotine dependence, chewing tobacco, uncomplicated
CPT/HCPCS: 70450; 71250; 72125; 99284

== ENCOUNTER 2025-03-18 17:01 | Emergency (ER) | payer OTHER ==
[2025-03-18] MEDS ORDERED: IBUPROFEN 200 MG TAB PO ONE (17:29)
[2025-03-18 18:02] LABS: SARS-CoV-2 Antigen Rapid Res Negative (Negative)
--- NOTE | 2025-03-18 18:28 | ER ---
Nurse's Notes [facility] Name: Marc Giron Age: 39 yrs Sex: Male : 1985 Arrival Date: 03/18/2025 Time: 17:01 Bed DIS1 Private MD: Diagnosis: Acute upper respiratory infection, unspecified Presentation: 03/18 17:17 Chief complaint:. Chief complaint: Patient states: FEVER, CHILLS, BODY ACHES, VOMITING db YESTERDAY. SYMPTOMS STARTED YESTERDAY. Coronavirus screen: Client denies travel out of the [place] in the last 14 days. At this time, the client does not indicate any symptoms associated with coronavirus-19. Ebola Screen: Patient negative for fever greater than or equal to 101.5 degrees Fahrenheit, and additional compatible Ebola Virus Disease symptoms Patient denies exposure to infectious person. Patient denies travel to an Ebola-affected area in the 21 days before illness onset. No symptoms or risks identified at this time. Initial Sepsis Screen: Does the patient meet any 2 criteria? HR > 90 bpm. No. Patient's initial sepsis screen is negative. Does the patient have a suspected source of infection? No. Patient's initial sepsis screen is negative. Risk Assessment: Do you want to hurt yourself or someone else? Patient reports no desire to harm self or others. Onset of symptoms was March 16, 2025. 17:17 Method Of Arrival: Ambulatory db 17:17 Acuity: MARGARITA 3 db Triage Assessment: 17:19 General: Appears in no apparent distress. comfortable, Behavior is calm, cooperative. db Pain: Complains of pain in BODY ACHES. Neuro: Level of Consciousness is awake, alert, obeys commands, Oriented to person, place, time, situation. Respiratory: Airway is patent Respiratory effort is even, unlabored, Respiratory pattern is regular, symmetrical. Historical: - Allergies: 17:19 No Known Allergies; db - PMHx: 17:19 Depression; Diabetes - NIDDM; Hyperlipidemia; Hypertension; insomnia; db - PSHx: 17:19 carpal tunnel; Cholecystectomy; Gastric Bypass; R elbow; Vasectomy; db - Immunization history:: Adult Immunizations unknown. - Infectious Disease History:: Denies. Screenin:30 Abuse screen: Denies threats or abuse. Denies injuries from another. Nutritional ss screening: No deficits noted. Tuberculosis screening: Never had TB. Assessment: 17:30 General: Appears in no apparent distress. comfortable, Behavior is calm, cooperative, ss Reports fever for feeling ill for. Neuro: Level of Consciousness is awake, alert, obeys commands, Oriented to person, place, time, situation. Respiratory: Airway is patent Respiratory effort is even, unlabored, Respiratory pattern is regular, symmetrical. GI: Patient currently denies diarrhea, nausea, vomiting. Derm: Skin is pink, warm \T\ dry. normal. 18:51 Reassessment: Patient appears in no apparent distress at this time. Patient and/or ss family updated on plan of care and expected duration. Pain level reassessed. Patient is alert, oriented x 3, equal unlabored respirations, skin warm/dry/pink. Vital Signs: 17:17 BP 158 / 99; Pulse 120; Resp 18; Temp 99; Pulse Ox 99% on R/A; Weight 102.06 kg; Height db 5 ft. 10 in. ; 18:50 Pulse 100; Resp 16; Pulse Ox 96% on R/A; ss 17:17 Body Mass Index 32.28 (102.06 kg, 177.8 cm) db ED Course: 17:06 Patient arrived in ED. gl 17:08 Pee Carroll DO is Attending Physician. ms3 17:19 Triage completed. db 17:19 Arm band placed on right wrist. db 18:27 Brian Nolen DO is Referral Physician. ms3 18:50 Hilda Goldman RN is Primary Nurse. ss 18:50 No provider procedures requiring assistance completed. Patient did not have IV access ss during this emergency room visit. Administered Medications: 17:38 Drug: Ibuprofen PO 600 mg PO once Route: PO; ss 18:51 Follow up: Response: No adverse reaction ss Medication: 17:30 VIS not applicable for this client. ss Outcome: 18:28 Discharge ordered by . ms3 18:50 Discharged to home ambulatory, ss 18:50 Condition: good 18:50 Discharge instructions given to patient, family, Instructed on discharge instructions, follow up and referral plans. Demonstrated understanding of instructions, follow-up care, 18:51 Patient left the ED. ss Signatures: Hilda Goldman RN RN ss Pee Carroll DO DO ms3 Paola Brooks RN RN db Carmen Key, Reg Reg gl
--- NOTE | 2025-03-18 18:28 | EDPHYS ---
Physician Documentation [facility] Name: Marc Giron Age: 39 yrs Sex: Male : 1985 Arrival Date: 03/18/2025 Time: 17:01 Bed DIS1 Private MD: ED Physician Pee Carroll HPI: 03/18 17:09 This 39 yrs old Male presents to ER via Unassigned with complaints of Fever, CHILLS. ms3 18:43 39-year-old male past medical history of depression, diabetes, hyperlipidemia, ms3 hypertension, insomnia presents to the emergency department for fevers, chills that began on Monday night. Yesterday patient had temperature of 101 at 630. Patient states he has not had fevers today and has felt better. Patient notes he did develop a cough yesterday. Historical: - Allergies: 17:19 No Known Allergies; db - PMHx: 17:19 Depression; Diabetes - NIDDM; Hyperlipidemia; Hypertension; insomnia; db - PSHx: 17:19 carpal tunnel; Cholecystectomy; Gastric Bypass; R elbow; Vasectomy; db - Immunization history:: Adult Immunizations unknown. - Infectious Disease History:: Denies. ROS: 18:43 Cardiovascular: Negative for chest pain, and palpitations. Abdomen/GI: Negative for ms3 abdominal pain, nausea, vomiting, diarrhea, and constipation, MS/Extremity: Negative for injury and deformity, Skin: Negative for injury, rash, and discoloration, 18:43 Constitutional: Positive for chills, fever, 18:43 Respiratory: Positive for cough, Exam: 18:43 Constitutional: This is a well developed, well nourished patient who is awake, alert, ms3 and in no acute distress. Respiratory: Lungs have equal breath sounds bilaterally, clear to auscultation and percussion. No rales, rhonchi or wheezes noted. No increased work of breathing, no retractions or nasal flaring. Abdomen/GI: Soft, non-tender, with normal bowel sounds. No distension or tympany. No guarding or rebound. No evidence of tenderness throughout. Skin: Warm, dry with normal turgor. Normal color with no rashes, no lesions, and no evidence of cellulitis. 18:43 Cardiovascular: Rate: tachycardic, Rhythm: regular, Pulses: no pulse deficits are appreciated, Vital Signs: 17:17 BP 158 / 99; Pulse 120; Resp 18; Temp 99; Pulse Ox 99% on R/A; Weight 102.06 kg; Height db 5 ft. 10 in. ; 18:50 Pulse 100; Resp 16; Pulse Ox 96% on R/A; ss 17:17 Body Mass Index 32.28 (102.06 kg, 177.8 cm) db MDM: 17:25 Medical Screening Exam initiated ms3 18:43 Differential diagnosis: viral Infection, URI. Data reviewed: vital signs, nurses notes, ms3 lab test result(s), and as a result, I will discharge patient. I considered the following discharge prescriptions or medication management in the emergency department Medications were administered in the Emergency Department. See MAR. Counseling: I had a detailed discussion with the patient and/or guardian regarding the historical points, exam findings, and any diagnostic results supporting the discharge/admit diagnosis, lab results, the need for outpatient follow up, to return to the emergency department if symptoms worsen or persist or if there are any questions or concerns that arise at home. Special discussion: I discussed with the patient/guardian in detail that at this point there is no indication for admission to the hospital. It is understood, however, that if the symptoms persist or worsen the patient needs to return immediately for re-evaluation. ED course: Discussed negative COVID with patient, his , and his daughter. Patient to follow-up with primary care physician in 2 to 3 days. Patient understands and agrees with plan. All questions were answered. Return precautions discussed include worsening symptoms, or any other concerns. On reevaluation patient is alert and oriented x 4, no apparent distress, nontoxic-appearing, speaking full sentences, ambulatory in the emergency department. 03/18 17:26 Order name: SARS-COV-2 Antigen Rapid; Complete Time: 18:05 ms3 Administered Medications: 17:38 Drug: Ibuprofen PO 600 mg PO once Route: PO; ss 18:51 Follow up: Response: No adverse reaction ss Disposition Summary: 03/18/25 18:28 Discharge Ordered Notes: Location: Home ms3 Condition: Stable ms3 Diagnosis - Acute upper respiratory infection, unspecified ms3 Followup: ms3 - With: Brian Nolen, DO - When: 2 - 3 days - Reason: Recheck today's complaints Discharge Instructions: - Discharge Summary Sheet ms3 - Upper Respiratory Infection, Adult ms3 Forms: - Medication Reconciliation Form ms3 - Antibiotic Education ms3 - Prescription Opioid Use ms3 - Patient Portal Instructions ms3 - Leadership Thank You Letter ms3 Signatures: Dispatcher [employer] Hilda Freeman, RN RN ss Pee Carroll DO DO ms3 Paola Brooks RN RN db
[2025-03-18 19:27] VITALS: BP 158/99; TEMP 99
[2025-03-18 19:28] VITALS: O2SAT 96
== END 2025-03-18 18:51 | disposition home or self-care (01) ==
LOC: ER 17:01
DX: J06.9 Acute upper respiratory infection, unspecified (principal); Z11.52 Encounter for screening for COVID-19
CPT/HCPCS: 36415; 87426; 99283